=== PATIENT | female | born 1955 | race Caucasian/White ===

== ENCOUNTER → 2017-11-12 | Outpatient (CLI) | payer MEDICARE, OTHER ==
[2015-10-16 11:54] VITALS: BP 109/74
[~2017-11-12] MED LIST: ACET325T9 PO; BUPIVACAINE MPF 0.5% 30 ML VIAL. ONE; CARB100T3 PO; CARB400T PO; CARV12.5 PO; CETI10TA22 PO; CLON1TAB3 PO; DIVA250T4 PO; DIVA500T17 PO; DIVA500T2 PO; DOCU100C28 PO; FERR325T14 PO; FURO-69 PO; GABA-586 PO; GABA600T2 PO; GUAI-108 PO; LEVO75TA5 PO; LEVO88TA4 PO; MAGN400O7 PO; METO50TA6 PO; OXYC5CAP PO; PANT40TA3 PO; POLY17PO5 PO; POTA20TA12 PO; RIVA10TA PO; SENN8.6T99 PO; TIZA4TAB PO; ZOLP5TAB5 PO
== END | disposition home or self-care (01) ==
LOC: SURG 14:48
PROVIDERS: ATTEND Anesthesiology Pain Medicine
DX: M54.81 Occipital neuralgia (principal); I10 Essential (primary) hypertension; M19.90 Unspecified osteoarthritis, unspecified site; G40.409 Other generalized epilepsy and epileptic syndromes, not intractable, without status epilepticus; M62.81 Muscle weakness (generalized); I82.499 Acute embolism and thrombosis of other specified deep vein of unspecified lower extremity; Z90.49 Acquired absence of other specified parts of digestive tract; Z96.653 Presence of artificial knee joint, bilateral; Z98.890 Other specified postprocedural states; Z88.0 Allergy status to penicillin; Z91.048 Other nonmedicinal substance allergy status
CPT/HCPCS: 64450; J3490

== ENCOUNTER → 2017-11-26 | Outpatient (CLI) | payer MEDICARE, OTHER ==
[2015-10-16 11:54] VITALS: BP 109/74
== END | disposition home or self-care (01) ==
LOC: SURG 14:04
PROVIDERS: ATTEND Anesthesiology Pain Medicine
DX: M54.81 Occipital neuralgia (principal); J44.9 Chronic obstructive pulmonary disease, unspecified; Z98.890 Other specified postprocedural states
CPT/HCPCS: 64405; J3490

== ENCOUNTER → 2018-01-07 | Outpatient (CLI) | payer OTHER ==
[2015-10-16 11:54] VITALS: BP 109/74
== END | disposition home or self-care (01) ==
LOC: SURG 14:15
PROVIDERS: ATTEND Anesthesiology Pain Medicine
DX: M54.81 Occipital neuralgia (principal); J44.9 Chronic obstructive pulmonary disease, unspecified; I25.10 Atherosclerotic heart disease of native coronary artery without angina pectoris; E78.00 Pure hypercholesterolemia, unspecified; E66.8 Other obesity; E03.9 Hypothyroidism, unspecified; F32.9 Major depressive disorder, single episode, unspecified; Z90.49 Acquired absence of other specified parts of digestive tract; Z96.653 Presence of artificial knee joint, bilateral; Z98.890 Other specified postprocedural states; Z88.0 Allergy status to penicillin; Z88.8 Allergy status to other drugs, medicaments and biological substances; Z68.41 Body mass index [BMI] 40.0-44.9, adult; Z87.39 Personal history of other diseases of the musculoskeletal system and connective tissue; Z86.718 Personal history of other venous thrombosis and embolism; Z86.14 Personal history of Methicillin resistant Staphylococcus aureus infection
CPT/HCPCS: 64405; J3490

== ENCOUNTER → 2018-06-18 | Outpatient (CLI) | payer OTHER ==
[2015-10-16 11:54] VITALS: BP 109/74
[~2018-06-18] MED LIST changes: -CLON1TAB3 PO; +CLON1TAB4 PO; +LIDOCAINE 1% PF 2 ML VIAL. ONE
== END | disposition home or self-care (01) ==
LOC: SURG 13:11
PROVIDERS: ATTEND Anesthesiology Pain Medicine
DX: M47.812 Spondylosis without myelopathy or radiculopathy, cervical region (principal); I10 Essential (primary) hypertension; E03.9 Hypothyroidism, unspecified; J44.9 Chronic obstructive pulmonary disease, unspecified; M54.81 Occipital neuralgia; Z86.718 Personal history of other venous thrombosis and embolism; M19.90 Unspecified osteoarthritis, unspecified site; Z88.0 Allergy status to penicillin; Z79.899 Other long term (current) drug therapy; Z88.8 Allergy status to other drugs, medicaments and biological substances
CPT/HCPCS: 64490; 64491; J3490

== ENCOUNTER → 2019-11-04 | Outpatient (CLI) | payer OTHER ==
[~2019-11-04] MED LIST changes: +BUPIVACAINE MPF 0.25% 10 ML VIAL. ONE; -BUPIVACAINE MPF 0.5% 30 ML VIAL. ONE; -CETI10TA22 PO; +CETI10TA24 PO; +CLON1TAB11 PO; -CLON1TAB4 PO; -GABA600T2 PO; +GABA600T7 PO; +IOHEXOL 300 MG/ML 50 ML VIAL. ONE; -LIDOCAINE 1% PF 2 ML VIAL. ONE; +LIDOCAINE 1% PF 30 ML VIAL. ONE; -TIZA4TAB PO; +TIZA4TAB2 PO; +methylPREDNISolone ACETATE 80 MG/ML VIAL. ONE
[2019-11-04 12:07] VITALS: BP 179/100
== END | disposition home or self-care (01) ==
LOC: SURG 10:59
PROVIDERS: ATTEND Anesthesiology Pain Medicine
DX: M16.12 Unilateral primary osteoarthritis, left hip (principal); I10 Essential (primary) hypertension; E03.9 Hypothyroidism, unspecified
CPT/HCPCS: 20610; 77002; J1040; J2001; J3490; Q9967; 20611

== ENCOUNTER 2020-09-16 23:20 | Emergency (ER) | payer OTHER ==
[~2020-09-16] VITALS: Ht 167.6 cm; Wt 140.7 kg
[~2020-09-16 23:20] MED LIST changes: -BUPIVACAINE MPF 0.25% 10 ML VIAL. ONE; -CETI10TA24 PO; +CETI10TA74 PO; -IOHEXOL 300 MG/ML 50 ML VIAL. ONE; -LIDOCAINE 1% PF 30 ML VIAL. ONE; -methylPREDNISolone ACETATE 80 MG/ML VIAL. ONE
--- NOTE | 2020-09-16 23:31 | PHYS DOC ---
Past History Past Medical History: Anxiety, Arthritis, Asthma, Constipation, COPD, DVT, GERD, High Cholesterol, Hypothyroid, Vascular Disease, Other Past Surgical History: Knee Replacement Alcohol Use: None Drug Use: None Adult General Chief Complaint Chief Complaint: HIP PAIN [facility] HPI Patient is a 65-year-old female who presents via EMS for left hip pain. This is a chronic problem. She has history of left total hip replacement and subsequently was seen by her orthopedic surgeon 3 days ago in outpatient setting, it was noted that her acetabular head was partially malaligned at that time and that she would benefit from surgical revision that is scheduled in September 2020. She was given prescription for narcotic pain medication at that time but patient reports this has not satisfactorily relieved her symptoms. Patient who lives at home with family members and has good access to outpatient care and services such as home health to assist with transfers have been providing ongoing supportive care for patient. Patient has had no falls, no other changes in health. [facility] reviewed, it appears patient is currently taking clonazepam 1 mg twice daily in addition to tramadol 50 mg 3 times daily. Review of Systems Review of Systems Fourteen body systems of review of systems have been reviewed. See HPI for pertinent positives and negative responses, other rosales all other systems are negative, non-pertinent or non-contributory Allergies Allergies Allergies Coded Allergies Type Severity Reaction Last Updated Verified Penicillins Allergy Intermediate rash 07/29/19 No tramadol Allergy Intermediate 07/29/19 Yes Uncoded Allergies Type Severity Reaction Last Updated Verified clear tape Adverse Reaction Unknown 09/04/14 Physical Exam Physical Exam Constitutional: Pt is oriented to person, place, and time. Pt appears well-developed and well-no urished. Morbidly obese HEENT: Head: Normocephalic and atraumatic. External ears unremarkable, negative atkinson sign Conjunctivae and EOM are normal. Pupils are equal, round, and reactive to light. Oropharynx is clear and moist. No hematomas or lacerations or abrasions to face or scalp OP clear, no blood, no malocclusion, dentition intact Nares clear, no nasal septal hematoma Midface stable Neck: C-spine midline nontender, no step-offs Cardiovascular: Normal rate, regular rhythm and normal heart sounds. Pulmonary/Chest: Effort normal and breath sounds normal. No respiratory distress. No wheezes. CTA bilaterally Abdominal: Soft. Bowel sounds are normal. Pt exhibits no distension. There is no tenderness. Musculoskeletal: No bony tenderness to extremities, no deformities, full ROM extremities Chest wall stable Pelvis stable and tenderness to palpation of left hip without any appreciated abnormalities palpated No vertebral TTP and spine without stepoffs Neurological: Pt is alert and oriented to person, place, and time. Moving all extremities willfully, able to wiggle all fingers and toes Alert and oriented x 3 Sensation grossly intact Skin: Skin is warm and dry. No abrasions, no lacerations Psychiatric: Behavior is appropriate for situation Current Patient Data Vital Signs Vital Signs Date Time Temp Pulse Resp B/P (MAP) Pulse Ox O2 Delivery O2 Flow Rate FiO2 09/17/20 00:20 57 16 133/63 (86) 97 Room Air 09/16/20 23:20 98.1 EKG EKG [] Radiology/Procedures Radiology/Procedures Single view pelvis and two-view left hip dated 09/16/2020. No comparison available. Clinical data indication: Pain. FINDINGS: AP view pelvis and two-view left hip show superior lateral subluxation of the left hip prosthesis from the acetabulum. The acetabular cup is displaced laterally and the upper most acetabular screw is fractured. Pelvic ring is intact. Proximal femoral shaft is intact. There is some fragmentation near the subluxed acetabular cup on the left. Mild degenerative change of the bilateral SI joint and symphysis with mild degenerative change of the right hip joint. Spondylotic changes the lower lumbar spine. IMPRESSION: 1. Superolateral dislocation of left hip prosthesis with fractured acetabular screw Electronically signed by: Jesus Hadley MD (09/17/2020 12:23 AM) [facility] Heart Score HEART Score for Chest Pain: HEART Score for Chest Pain Response (Comments) Value History Slighlty/Non-Suspicious 0 Age >45 - < 65 1 Risk Factors >3 Risk Factors or Hx CAD 2 Total 3 Risk Factors: Risk Factors: DM, Current or recent (<one month) smoker, HTN, HLP, family history of CAD, obesity. Risk Scores: Risk Factors: DM, Current or recent (<one month) smoker, HTN, HLP, family history of CAD, obesity. Course & Med Decision Making Course & Med Decision Making Pertinent Labs and Imaging studies reviewed. (See chart for details) Patient's orthopedic physician called and plain films of hip reviewed. He did not feel transfer was necessary. Patient has good home support, lives with family member and has extensive health resources available to her such as daily home health and other medical providers which assist with transferring etc. Patient is nonweightbearing exclusively. Orthopedic physician did feel that her revision should be scheduled sooner than mid September and reports he will call patient first thing Friday morning to arrange this. No need for additional me dications at this time, patient to continue previously prescribed tramadol and utilize Tylenol for pain. I updated patient on discussion with orthopedic physician and that there is little indication for further diagnostic work-up in ER setting. Strict return precautions were discussed with good understanding by patient, all questions and concerns addressed prior to ER transport home via EMS for ongoing supportive care prior to surgical fixation of left hip Dragon Disclaimer Dragon Disclaimer This electronic medical record was generated, in whole or in part, using a voice recognition dictation system. Departure Departure: Impression: Primary Impression: Chronic left hip pain Disposition: 01 DC HOME SELF CARE/HOMELESS Condition: STABLE Referrals: DEIDRA LEMUS MD (PCP) Additional Instructions: Your evaluated in the ER today for your ongoing left hip pain. There were no emergent and/or surgical findings present today. Your case was discussed with your orthopedic surgeon who also agreed there was no indication for further ER work-up and/or transfer for surgical fixation. With that said, he did recommend that we schedule your surgery sooner than it is currently. He will be reaching out to you first thing Friday to discuss available dates. In the meantime, he advised ongoing tramadol use and Tylenol use for as needed pain and limit weightbearing to reduce risk of worsened left hip. If any concerning signs or symptoms present prior to outpatient follow-up please do not hesitate to come back for repeat evaluation. It was a pleasure to take care of you and I wish you the best going forward ARTIE REBOLLEDO DO Sep 16, 2020 23:31
[2020-09-17 00:20] VITALS: BP 133/63
--- NOTE | 2020-09-17 00:26 | RAD ---
Single view pelvis and two-view left hip dated 09/16/2020. No comparison available. Clinical data indication: Pain. FINDINGS: AP view pelvis and two-view left hip show superior lateral subluxation of the left hip prosthesis fro m the acetabulum. The acetabular cup is displaced laterally and the upper most acetabular screw is fr actured. Pelvic ring is intact. Proximal femoral shaft is intact. There is some fragmentation near the subluxe d acetabular cup on the left. Mild degenerative change of the bilateral SI joint and symphysis with m ild degenerative change of the right hip joint. Spondylotic changes the lower lumbar spine. IMPRESSION: 1. Superolateral dislocation of left hip prosthesis with fractured acetabular screw Electronically signed by: Jesus Hadley MD (09/17/2020 12:23 AM) [facility]
[2020-09-17] MEDS ORDERED: CLON0.5T4 PO (22:04)
[2020-09-17] MEDS ORDERED: METO25TA4 PO (22:04)
[2020-09-17] MEDS ORDERED: LEVO125T5 PO (22:04)
[2020-09-17] MEDS ORDERED: FURO40TA4 PO (22:15)
[2020-09-17] MEDS ORDERED: TORS20TA2 PO (22:15)
[2020-09-17] MEDS ORDERED: DIAZ5TAB4 PO (22:15)
[2020-09-17] MEDS ORDERED: DIVA500T2 PO (22:15)
[2020-09-17] MEDS ORDERED: APIX5TAB3 PO (22:15)
[2020-09-17] MEDS ORDERED: PROM12.58 PO (22:15)
[2020-09-17] MEDS ORDERED: CLON0.1T PO (22:15)
[2020-09-17] MEDS ORDERED: DIVA250T4 PO (22:15)
[2020-09-17] MEDS ORDERED: MULT-735 PO (22:15)
[2020-09-17] MEDS ORDERED: TRAM50TA PO (22:15)
[2020-09-17] MEDS ORDERED: CYCL5TAB PO (22:15)
[2020-09-17] MEDS ORDERED: LISI40TA PO (22:15)
[2020-09-17] MEDS ORDERED: DULO60CA6 PO (22:15)
[2020-09-17] MEDS ORDERED: ZOLP5TAB5 PO (22:50)
== END 2020-09-17 01:23 | disposition home or self-care (01) ==
LOC: ER 23:20
DX: G89.29 Other chronic pain (principal); M25.552 Pain in left hip; F41.9 Anxiety disorder, unspecified; M19.90 Unspecified osteoarthritis, unspecified site; J44.9 Chronic obstructive pulmonary disease, unspecified; K21.9 Gastro-esophageal reflux disease without esophagitis; E78.00 Pure hypercholesterolemia, unspecified; E03.9 Hypothyroidism, unspecified; Z98.890 Other specified postprocedural states; Z86.718 Personal history of other venous thrombosis and embolism; Z88.8 Allergy status to other drugs, medicaments and biological substances
CPT/HCPCS: 73502; 99283

== ENCOUNTER 2020-09-17 16:40 | Observation (INO) | payer OTHER, MEDICAID ==
[~2020-09-17] VITALS: Ht 165.1 cm; Wt 119.0 kg
--- NOTE | 2020-09-17 17:24 | PHYS DOC ---
Past History Past Medical History: Anxiety, Arthritis, Asthma, Constipation, COPD, DVT, GERD, High Cholesterol, Hypothyroid, Vascular Disease, Other Past Surgical History: Knee Replacement Alcohol Use: None Drug Use: None Adult General Chief Complaint Chief Complaint: HIP PAIN HPI HPI Patient is a 65-year-old female presenting via EMS complaining of left hip pain. She was seen by myself at our facility approximately 12 hours ago. She had plain films performed of left hip status post failed total hip arthroplasty. Patient's orthopedic surgeon was called at that time and patient is actually scheduled for surgical revision in upcoming weeks but given clinical scenario, nonemergent transfer indicated and patient was subsequently sent home as she has home health worker comes out and assist with activities of daily living and her sister. Nonetheless, patient has been experiencing worsening pain and decreased mobility in past 1 week and has had increased episodes of using the bathroom on herself because of her inability to transfer and ambulate without assistance of others. She is becoming too much work for sister who lives with her who has Parkinson's and home health services. Patient called primary care physician today and was advised to come back for repeat evaluation. Patient denies any falls or other concerning traumatic events since last seen and evaluated by myself. She is concerned about going home and continuing to accidentally go to the bathroom because of her inability to ambulate and/or transfer despite assistance of others Review of Systems Review of Systems Fourteen body systems of review of systems have been reviewed. See HPI for pertinent positives and negative responses, other rosales all other systems are negative, non-pertinent or non-contributory Allergies Allergies Allergies Coded Allergies Type Severity Reaction Last Updated Verified Penicillins Allergy Intermediate rash 09/16/20 No adhesive tape Allergy Intermediate 09/16/20 Yes tramadol Allergy Intermediate 09/16/20 Yes Physical Exam Physical Exam Constitutional: Well developed, well nourished, no acute distress, non-toxic appearance. Morbidly obese HENT: Normocephalic, atraumatic, bilateral external ears normal, oropharynx moist, no oral exudates, nose normal. Eyes: PERRLA, EOMI, conjunctiva normal, no discharge. Neck: Normal range of motion, no tenderness, supple, no stridor. Cardiovascular: Heart rate regular, sinus rhythm, no murmurs rubs or gallops Lungs & Thorax: Bilateral breath sounds clear to auscultation Abdomen: Bowel sounds normal, soft, no tenderness, no masses, no pulsatile masses. Nonsurgical abdomen, no peritoneal signs. Pelvis stable but focal tenderness with palpation to left hip Skin: Warm, dry, no erythema, no rash. Back: No tenderness, no CVA tenderness. Extremities: No tenderness, no cyanosis, no clubbing, ROM intact, no edema. Neurologic: Alert and oriented X 3, grossly normal motor & sensory function, no focal deficits noted. Psychologic: Affect normal, judgement normal, mood normal. Current Patient Data Vital Signs Vital Signs Date Time Temp Pulse Resp B/P (MAP) Pulse Ox O2 Delivery O2 Flow Rate FiO2 09/17/20 16:48 65 18 168/79 (108) 99 EKG EKG [] Radiology/Procedures Radiology/Procedures Single view pelvis and two-view left hip dated 09/16/2020. No comparison available. Clinical data indication: Pain. FINDINGS: AP view pelvis and two-view left hip show superior lateral subluxation of the left hip prosthesis from the acetabulum. The acetabular cup is displaced laterally and the upper most acetabular screw is fractured. Pelvic ring is intact. Proximal femoral shaft is intact. There is some fragmentation near the subluxed acetabular cup on the left. Mild degenerative change of the bilateral SI joint and symphysis with mild degenerative change of the right hip joint. Spondylotic changes the lower lumbar spine. IMPRESSION: 1. Superolateral dislocation of left hip prosthesis with fractured acetabular screw Electronically signed by: Jesus Hadley MD (09/17/2020 12:23 AM) [facility] Heart Score HEART Score for Chest Pain: HEART Score for Chest Pain Response (Comments) Value History Slighlty/Non-Suspicious 0 Age >45 - < 65 1 Risk Factors >3 Risk Factors or Hx CAD 2 Total 3 Risk Factors: Risk Factors: DM, Current or recent (<one month) smoker, HTN, HLP, family history of CAD, obesity. Risk Scores: Risk Factors: DM, Current or recent (<one month) smoker, HTN, HLP, family history of CAD, obesity. Course & Med Decision Making Course & Med Decision Making This is patient's second ER visit in the past 12 hours. Case discussed with sister who lives with patient, she has Parkinson's and unable to provide full level of care required for patient and given state. Also discussed case further with orthopedic surgeon for second time today who denied transfer to his facility given nonemergent need for repair. Nonetheless, patient unable to safely ambulate and care for self at home. She has regular care at home but requires higher acuity than what is currently provided to assist through personal deficits. Unsafe to disposition home; at minimum plan admission for home safety evaluation, social and physical therapy evaluations, possible placement pending outpatient nonemergent surgical fixation of left hip. I discussed case with hospitalist at [facility] who agreed for admission. Patient updated on plan of care and was amenable to admission Dragon Disclaimer Dragon Disclaimer This electronic medical record was generated, in whole or in part, using a voice recognition dictation system. Departure Departure: Impression: Primary Impression: Failure of left total hip arthroplasty with dislocation of hip Additional Impressions: Unable to care for self Morbid obesity Disposition: ADMITTED INPT THIS HOSP Admitting Physician: Chacho Baltazar Condition: STABLE Referrals: DEIDRA LEMUS MD (PCP) Problem Qualifiers ARTIE REBOLLEDO DO Sep 17, 2020 17:24
[2020-09-17 19:00] VITALS: BP 153/89
[2020-09-17] MEDS ORDERED: ACETAMINOPHEN 325 MG TABLET PO PRN (22:00)
[2020-09-17] MEDS ORDERED: POTASSIUM CHLORIDE 20 MEQ TABLET.ER. PO PRN (22:00)
[2020-09-17] MEDS ORDERED: FUROSEMIDE 40 MG TABLET PO PRN (22:00)
[2020-09-17] MEDS ORDERED: METO25TA4 PO (22:04)
[2020-09-17] MEDS ORDERED: CLON0.5T4 PO (22:04)
[2020-09-17] MEDS ORDERED: LEVO125T5 PO (22:04)
[2020-09-17] MEDS ORDERED: CYCL5TAB PO (22:15)
[2020-09-17] MEDS ORDERED: TORS20TA2 PO (22:15)
[2020-09-17] MEDS ORDERED: FURO40TA4 PO (22:15)
[2020-09-17] MEDS ORDERED: APIX5TAB3 PO (22:15)
[2020-09-17] MEDS ORDERED: PROM12.58 PO (22:15)
[2020-09-17] MEDS ORDERED: DIAZ5TAB4 PO (22:15)
[2020-09-17] MEDS ORDERED: CLON0.1T PO (22:15)
[2020-09-17] MEDS ORDERED: MULT-735 PO (22:15)
[2020-09-17] MEDS ORDERED: TRAM50TA PO (22:15)
[2020-09-17] MEDS ORDERED: DIVA500T2 PO (22:15)
[2020-09-17] MEDS ORDERED: DIVA250T4 PO (22:15)
[2020-09-17] MEDS ORDERED: DULO60CA6 PO (22:15)
[2020-09-17] MEDS ORDERED: LISI40TA PO (22:15)
[2020-09-17] MEDS ORDERED: PROMETHAZINE 25 MG TABLET. PO PRN (22:45)
[2020-09-17] MEDS ORDERED: ZOLP5TAB5 PO (22:50)
[2020-09-17] MEDS: traMADol 50 MG TABLET PO PRN (22:54)
[2020-09-17] MEDS ORDERED: ZOLPIDEM 5 MG TABLET. PO PRN (23:00)
[2020-09-17] MEDS ORDERED: ANTI-COAG MONITOR BY PHARMACY. MC PRN (23:15)
[2020-09-17 23:43] VITALS: BP 121/74
[2020-09-18] MEDS: cloNIDine HCL 0.1 MG TABLET PO SCH ×2 (00:15→08:10)
[2020-09-18] MEDS: APIXABAN 5 MG TABLET. PO SCH ×3 (00:16→22:04)
[2020-09-18] MEDS: DIVALPROEX SODIUM 250 MG TABLET.DR. PO SCH ×4 (00:16→22:04)
[2020-09-18] MEDS: METOPROLOL TART IMMED RELEASE 25 MG TABLET. PO SCH ×2 (00:16→08:09)
[2020-09-18] MEDS: FERROUS SULFATE 325 MG TABLET. PO SCH ×3 (00:16→22:04)
[2020-09-18] MEDS: GABAPENTIN 300 MG CAPSULE. PO SCH ×4 (00:16→22:04)
--- NOTE | 2020-09-18 03:10 | NUR ---
PT admitted for displaced hip replacement. This is PT's second visit to ER for same in 2 days. PT is scheduled for surgical repair. PT asking for a Philip to be placed multiple times throughout shift. PT explained each time that it increases her risk of infection and she is needing this surgery. An infection would delay surgery. Re-explained that we do no mind needing to change and clean her as needed. Bed chen utilized when not incontinent. PT mostly incontinent. PT brought in discharge medication sheet from [facility] with home medications listed. PT does not take medications exactly according to discharge. Medications adjusted multiple times from PT telling this nurse differing doses throughout night. IV placed. Reviewed with PT her PMH, PSH, SH, FH and medications.
[2020-09-18 05:00] VITALS: BP 117/70
[2020-09-18] MEDS: LEVOTHYROXINE 125 MCG TABLET PO SCH (06:38)
[2020-09-18 07:03] LABS: BASO % 1 % (0-3); EOS # 0.1 x10^3/uL (0.0-0.7); EOS % 2 % (0-3); HEMATOCRIT 31.9 % (36.0-47.0); HEMOGLOBIN 10.4 g/dL (12.0-15.5); LYMPH # 1.8 x10^3/uL (1.0-4.8); LYMPH % 32 % (24-48); MEAN CORPUSCULAR HEMOGLOBIN 30 pg (25-35); MEAN CORPUSCULAR HGB CONC 33 g/dL (31-37); MEAN CORPUSCULAR VOLUME 92 fL (79-100); MONO # 0.8 x10^3/uL (0.0-1.1); MONO % 15 % (0-9); NEUT # 2.9 x10^3uL (1.8-7.7); NEUT % 51 % (31-73); PLATELET COUNT 193 x10^3/uL (140-400); RED BLOOD COUNT 3.48 x10^6/uL (3.50-5.40); RED CELL DISTRIBUTION WIDTH 16.1 % (11.5-14.5); WHITE BLOOD COUNT 5.6 x10^3/uL (4.0-11.0)
[2020-09-18 07:24] LABS: ALBUMIN 2.4 g/dL (3.4-5.0); ALBUMIN/GLOBULIN RATIO 0.9 (1.0-1.7); CALCIUM 8.1 mg/dL (8.5-10.1); GFR 55.8; POTASSIUM 4.3 mmol/L (3.5-5.1); TOTAL BILIRUBIN 0.3 mg/dL (0.2-1.0); TOTAL PROTEIN 5.1 g/dL (6.4-8.2)
[2020-09-18] MEDS: MULTIVITAMIN with MINERAL TABLET. PO SCH (08:08)
[2020-09-18] MEDS: clonazePAM 0.5 MG TABLET PO SCH ×3 (08:09→21:00)
[2020-09-18] MEDS: diazePAM 5 MG TABLET. PO SCH ×5 (08:10→21:00)
[2020-09-18] MEDS: DULoxetine HCL 60 MG CAPSULE.DR PO SCH (08:10)
[2020-09-18] MEDS: traMADol 50 MG TABLET PO PRN ×2 (08:30→22:04)
[2020-09-18] MEDS ORDERED: LISINOPRIL 20 MG TABLET PO SCH (09:00)
[2020-09-18] MEDS ORDERED: TORSEMIDE 20 MG TABLET. PO SCH (09:00)
[2020-09-18] MEDS: CYCLOBENZAPRINE 10 MG TABLET. PO PRN (11:11)
[2020-09-18 11:28] VITALS: BP 81/41
[2020-09-18 11:30] VITALS: BP 78/37
[2020-09-18] MEDS ORDERED: carBAMazepine 100 MG TAB.CHEW PO SCH (14:00)
[2020-09-18 14:18] VITALS: BP 107/49
[2020-09-18] MEDS ORDERED: IV NORMAL SALINE 500ML 500 ML IV ONE (14:30)
--- NOTE | 2020-09-18 14:53 | HP ---
ADMIT DATE: 09/18/2020 HISTORY OF PRESENT ILLNESS: The patient is a 65-year-old female patient who presented to the Emergency Room for the second time with a complaint of left hip pain. She apparently was seen at the Emergency Room on Friday. She at that time plain films performed of the left hip, status post failed total hip arthroplasty. Her orthopedic surgeon was called at that time and the patient is actually scheduled for surgical intervention in the upcoming weeks, but given the clinical scenario, none emergent transfer indicated and the patient was subsequently sent home. She has home health workers comes out and assist with activities of daily living and her sister. Nonetheless, the patient has been experiencing worsening pain and decreased mobility in the past 1 week, has had increased episodes of using the bathroom on herself because of her inability to transfer and ambulate without assistance of others. She is becoming too much work for sister who lives with her who herself has Parkinson's disease and some other medical problems. The patient called primary care physician today and was advised to come back to repeat evaluation. She denied any fall or other concerning traumatic events since last seen. She is very concerned about going home and continued to accidentally go to the bathroom because of her inability to ambulate and/or transfer despite assistance of others and therefore, she was admitted for pain management due to self-care deficit and failed her left total hip arthroplasty with dislocation of the hip. PAST MEDICAL HISTORY: Significant for hypertension, morbid obesity, COPD, generalized osteoarthritis, osteoporosis, and seizure disorder. She has also history of deep vein thrombosis. PAST SURGICAL HISTORY: Significant for right total knee arthroplasty x 2, left total knee arthroplasty, right total shoulder replacement, cholecystectomy, D and C. She has also bilateral cataract extraction and tubal ligation. She did have also an IVC filter placed. ALLERGIES: SHE IS ALLERGIC TO PENICILLIN AND CLEAR TAPE. MEDICATIONS: She is currently on following medications: She is on promethazine 12.5 mg every 8 hours as needed, cyclobenzaprine 5 mg 3 times a day, ferrous sulfate 325 mg twice a day, apixaban 5 mg twice a day, clonidine 0.1 mg twice a day, metoprolol tartrate 25 mg twice a day, lisinopril 40 mg once a day, tramadol 50 mg every 8 hours, Tylenol 650 mg every 8 hours, clonazepam, she takes 1 mg twice a day, carbamazepine 100 mg 3 times a day, divalproex 750 mg twice a day and divalproex 500 mg daily. She is on gabapentin 600 mg 3 times a day, duloxetine 60 mg daily. She is on diazepam 5 mg 4 times a day, Ambien 5 mg at bedtime, potassium chloride 20 mEq twice a day, furosemide 40 mg once a day, furosemide 20 mg daily, levothyroxine 125 mcg once a day, multivitamin 1 tablet once a day. REVIEW OF SYSTEMS: The patient denied any blurring of vision, did have bilateral cataract extraction, but denied any glaucoma or macular degeneration. Denied any earache, tinnitus or sensorineural deafness. Denied any nosebleeds, stuffy nose or postnasal drip. Denied any sore throat, sore tongue, toothache, hoarseness of voice or difficulty swallowing. She apparently has lost 74 pounds intentionally. She is on 1500 calorie diet. Denied any nausea, vomiting, diarrhea or constipation. Denied any hematemesis, melena or hematochezia. Denied any dysuria, frequency or hematuria. Denied any chest pain, shortness of breath, orthopnea, paroxysmal nocturnal dyspnea. Denied any cough, phlegm or hemoptysis. Denied any chills, rigors or fever. FAMILY HISTORY: She has 4 sisters and 3 brothers, all living in [place], [place] and they do not keep in touch with her. Her mother at the age of 72. Her father is still alive at the age of 74, which is probably wrong, he probably must be older than that. SOCIAL HISTORY: She is , has 1 miscarriage. She has no children. She smoked for 20 years, quit 3 years ago. She does not drink alcohol or use any recreational drugs. She used to work at [employer], worked there for 20 years. PHYSICAL EXAMINATION: GENERAL: On arrival to the Emergency Room, she was pale, but no jaundice or cyanosis. No lymphadenopathy, no thyromegaly. No jugular venous distention, but mild bilateral lower limb edema. VITAL SIGNS: Her heart rate on arrival was 65, blood pressure was 168/79, temperature was 97.5, respiratory rate was 20, and oxygen saturation was 100% on room air. HEAD, EYES, EARS, NOSE AND THROAT: Showed normocephalic, atraumatic. NECK: Supple. HEART: Showed normal first and second heart sounds. No gallop or murmur. CHEST: Clear to auscultation. No crepitation or rhonchi. ABDOMEN: Distended, soft, nontender. NEUROLOGIC: She is awake, alert, responding appropriately. All cranial nerves intact. She moves upper extremities without difficulty. She is having severe pain in her left hip joint, which limits her ability to ambulate. She has dislocated hip and apparently fractured acetabular screws. LABORATORY DATA: Her lab work on admission showed a white cell count of 5600, hemoglobin 10, hematocrit 32, MCV 92, and platelet count of 193,000 with normal manual differential. Her chemistry showed a serum sodium 134, potassium 4.3, chloride 100, bicarbonate 28, anion gap of 6, BUN 17, creatinine 1, estimated GFR was 55 mL per minute. Her glucose was 87, calcium was 8.1. Total bilirubin, AST, ALT, alkaline phosphatase were normal. Total protein 5.1, albumin was 2.4. IMPRESSION: In summary, this is a 65-year-old female patient who was admitted with failure of left hip total arthroplasty with dislocation of the left hip and fracture of the acetabular screws. She has also severe self-care deficit, morbid obesity, she has multiple other medical problems including seizure disorder, hypertension, COPD, morbid obesity, osteoarthritis, and osteoporosis. PLAN: To continue with all her medications. I will obviously consult the social science research assistant to see whether she is a candidate for transfer to a senior care facility prior to her going to surgery. JENNIFER LEYVA MD DR: DRAKE/tracy JOB#: [id number] / [id number]
--- NOTE | 2020-09-18 15:54 | EKG ---
[address] [address] Test Date: 2020-09-18 Test Time: 15:08:33 Pat Name: JOSETTE ZHANG Department: Room: 113 A Gender: F Gut Dropper: : [id number] Requested By: DEIDRA LEMUS Order Number: [id number] Reading MD: Tera Seymour MD Measurements Intervals [place] Rate: 51 P: 45 TX: 212 QRS: 25 QRSD: 92 T: 138 QT: 476 QTc: 445 Interpretive Statements SINUS RHYTHM ST & T ABNORMALITY, CONSIDER ANTEROLATERAL ISCHEMIA OR LEFT VENTRICULAR STRAIN T ABNORMALITY IN ANTERIOR LEADS ABNORMAL ECG Electronically Signed On 09-19-2020 16:23:51 SHUTTLE BUGGY OPERATOR by Tera Seymour MD
--- NOTE | 2020-09-18 18:30 | NUR ---
Received call from Dr. Gay, patient's PCP, this afternoon. Patient is scheduled for hip surgery on 26 September 2020; her surgeon, Dr. Velasquez has ordered CMP, CBC, ESR, CRP, EKG, UA, MRSA, and Covid-19 to be completed prior to surgery. Orders entered, results are to be faxed to Dr. Velasquez's office at [phone]. Will continue to monitor and report to oncoming shift.
--- NOTE | 2020-09-18 19:18 | PN ---
DATE: 09/18/2020 SUBJECTIVE: The patient is resting, slightly propped up in bed, in no apparent distress. She continued to complain of severe pain in her left hip joint and inability to walk. PHYSICAL EXAMINATION: GENERAL: When I examined her, she looked pale, but no jaundice, cyanosis or thyromegaly. No jugular venous distention. No lower limb edema. VITAL SIGNS: Her heart rate was 70, her blood pressure was 78/37, temperature was 97.4, respiratory rate was 20, and oxygen saturation was 97%. HEAD, EYES, EARS, NOSE, AND THROAT: Showed she is normocephalic, atraumatic. NECK: Supple. HEART: Showed normal first and second heart sounds. No gallop, rub or murmur. CHEST: Clear to auscultation. No crepitation or rhonchi. ABDOMEN: Distended, soft, nontender. No guarding or rigidity. No organomegaly. All hernial orifice intact. Bowel sounds normal. NEUROLOGIC: She is awake, alert, responding appropriately. All cranial nerves intact. She moves upper extremities without difficulty. She is unable to move her left lower extremity due to severe hip pain. LABORATORY DATA: Her lab work this morning showed a white cell count 5600; hemoglobin 10; hematocrit 32; MCV 92; and platelet count of 193,000. Her chemistry this morning showed a serum sodium 134, potassium 4.3, chloride 100, bicarbonate 28, anion gap of 60, BUN 17, creatinine 1. Estimated GFR was 55 mL per minute. Her glucose was 87, calcium was 8.1. Total bilirubin, AST, ALT, alkaline phosphatase were normal. Total protein 5.1, albumin was 2.4. ASSESSMENT: 1. In summary, this is a 65-year-old female patient who was admitted with dislocated left hip joint fracture of the acetabular screws. 2. Severe self-care deficit. 3. Morbid obesity and poor mobility. She has multiple other medical problems including: A. Seizure disorder. B. Hypertension. C. Chronic obstructive pulmonary disease. D. Morbid obesity. F. Osteoarthritis and osteoporosis. G. History of deep venous thrombosis, for which she had an inferior vena cava filter. PLAN: To continue with pain management. Continue with DVT prophylaxis. Continue with all her seizure medication. I will hold her blood pressure medication as she is hypotensive. JENNIFER LEYVA MD DR: Kerry JOB#: [id number] / [id number]
[2020-09-18 20:06] VITALS: BP 114/67
[2020-09-18 23:22] VITALS: BP 136/73
[2020-09-18 23:37] LABS: BACTERIA,URINE 0 /HPF (0-FEW); BILIRUBIN,URINE NEG (NEG); CLARITY,URINE CLEAR; COLOR,URINE YELLOW; GLUCOSE,URINE NEG (NEG); NITRITE,URINE NEG (NEG); RBC,URINE 0 /HPF (0-2); SQUAMOUS EPITHELIAL CELL,UR OCC /LPF; UROBILINOGEN,URINE 0.2 mg/dL (0.2 mg/dL); WBC,URINE RARE /HPF (0-4)
[2020-09-19 05:51] VITALS: BP 125/73
[2020-09-19] MEDS: LEVOTHYROXINE 125 MCG TABLET PO SCH (06:00)
[2020-09-19 06:48] LABS: BASO % 1 % (0-3); EOS # 0.1 x10^3/uL (0.0-0.7); EOS % 1 % (0-3); HEMATOCRIT 35.4 % (36.0-47.0); HEMOGLOBIN 11.5 g/dL (12.0-15.5); LYMPH # 1.6 x10^3/uL (1.0-4.8); LYMPH % 25 % (24-48); MEAN CORPUSCULAR HEMOGLOBIN 30 pg (25-35); MEAN CORPUSCULAR HGB CONC 33 g/dL (31-37); MEAN CORPUSCULAR VOLUME 92 fL (79-100); MONO # 0.8 x10^3/uL (0.0-1.1); MONO % 13 % (0-9); NEUT # 3.7 x10^3uL (1.8-7.7); NEUT % 60 % (31-73); PLATELET COUNT 192 x10^3/uL (140-400); RED BLOOD COUNT 3.83 x10^6/uL (3.50-5.40); RED CELL DISTRIBUTION WIDTH 16.1 % (11.5-14.5); WHITE BLOOD COUNT 6.3 x10^3/uL (4.0-11.0)
[2020-09-19 06:50] LABS: ALBUMIN 2.5 g/dL (3.4-5.0); ALBUMIN/GLOBULIN RATIO 0.9 (1.0-1.7); CALCIUM 8.3 mg/dL (8.5-10.1); GFR 55.8; POTASSIUM 4.1 mmol/L (3.5-5.1); TOTAL BILIRUBIN 0.4 mg/dL (0.2-1.0); TOTAL PROTEIN 5.4 g/dL (6.4-8.2)
--- NOTE | 2020-09-19 07:49 | PDOC2 ---
MARIEL GUZMAN COMMUNITY FACILITATOR 09/19/20 0749: CARDIAC CONSULT DATE OF CONSULT DOS: DATE: 09/19/20 TIME: 07:44 REASON FOR CONSULT Reason for Consult abnormal EKG REFERRING PHYSICIAN Referring Physician Dr. Baltazar SOURCE Source: Chart review, Patient HPI History of Present Illness this is a 65 yo female who presented secondary to worsening left hip pain and immobility. Patient underwent left hip arthroplasty 03/21/[address] Velasquez in [place]. Recent imaging notable for superolateral dislocation of left hip prosthesis with fractured acetabular screw. Patient is scheduled for revision next Friday. Over the last week, patient has been more weak and is unable to get up without significant assistance. Lives at home with sister who has Parkinson's and unable to care for her. Has urinated on herself multiples times as she is unable to get to the bathroom. Patient returned to ED with increased pain and self care deficit. EKG noted to be abnormal, which prompted this consult. She denies any chest pain, palpitations, dizziness, diaphoresis, SOA, nausea/vomiting, or syncopal episodes. No recent cardiac workup and does not follow with director of strategic communications. PAST MEDICAL HISTORY Cardiovascular: HTN, hyperipidemia Pulmonary: COPD CENTRAL NERVOUS SYSTEM: Seizure GI: GERD Heme/Onc: Anemia NOS, Other (DVT) Psych: Anxiety, Depression Musculoskeletal: Osteoarthritis Endocrine: Hypothyroidism PAST SURGICAL HISTORY Past Surgical History: Total knee replacement (bilateral ), Other (right shoulder surgery, IVC filter ) FAMILY HISTORY Family History: Heart Disease, Other (Parkinson's) SOCIAL HISTORY Smoke: Quit ALCOHOL: none Drugs: None Lives: with Family CURRENT MEDICATIONS Current Medications Current Medications Acetaminophen (Tylenol) 650 mg PRN Q8HRS PRN PO PAIN Last administered on 09/18/20at 11:11; Start 09/17/20 at 22:00 Apixaban (Eliquis) 5 mg BID PO Last administered on 09/18/20at 22:04; Start 09/18/20 at 00:00 Carbamazepine (TEGretol XR) 100 mg TID PO ; Start 09/18/20 at 00:00; Stop 09/18/20 at 14:17; Status DC Clonazepam (KlonoPIN) 1 mg BID PO Last administered on 09/18/20at 08:09; Start 09/18/20 at 00:00 Clonidine HCl (Catapres) 0.1 mg BID PO Last administered on 09/18/20at 08:10; Start 09/18/20 at 00:00; Stop 09/18/20 at 14:17; Status DC Diazepam (Valium) 5 mg QID PO Last administered on 09/18/20at 16:31; Start 09/18/20 at 00:00 Divalproex Sodium (Depakote) 750 mg BID PO Last administered on 09/18/20at 22:04; Start 09/18/20 at 00:00 Duloxetine HCl (Cymbalta) 60 mg DAILY PO Last administered on 09/18/20at 08:10; Start 09/18/20 at 09:00 Ferrous Sulfate (Feosol) 325 mg BID PO Last administered on 09/18/20at 22:04; Start 09/18/20 at 00:00 Furosemide (Lasix) 40 mg DAILY PRN PO SEE ADMIN INSTRUCTIONS; Start 09/17/20 at 22:00; Status UNV Levothyroxine Sodium (Synthroid) 125 mcg DAILY06 PO Last administered on at 06:00; Start 09/18/20 at 06:00 Metoprolol Tartrate (Lopressor) 25 mg BID PO Last administered on 09/18/20at 08:09; Start 09/18/20 at 00:00; Stop 09/18/20 at 14:17; Status DC Potassium Chloride (Klor-Con) 20 meq BID PRN PO SEE ADMIN INSTRUCTIONS; Start 09/17/20 at 22:00; Status UNV Torsemide (Demadex) 20 mg DAILY PO Last administered on 09/18/20at 08:11; Start 09/18/20 at 09:00; Stop 09/18/20 at 14:17; Status DC Tramadol HCl (Ultram) 50 mg PRN Q8HRS PRN PO PAIN Last administered on 09/18/20 at 22:04; Start 09/17/20 at 22:00 Cyclobenzaprine HCl (Flexeril) 10 mg PRN TID PRN PO MUSCLE SPASMS Last administered on 09/18/20at 11:11; Start 09/17/20 at 22:45 Divalproex Sodium (Depakote) 500 mg DAILY16 PO Last administered on 09/18/20at 16:31; Start 09/18/20 at 16:00 Gabapentin (Neurontin) 600 mg TID PO Last administered on 09/18/20at 22:04; Start 09/18/20 at 00:00 Lisinopril (Prinivil) 40 mg DAILY PO Last administered on 09/18/20at 08:10; Start 09/18/20 at 09:00; Stop 09/18/20 at 14:17; Status DC Multivitamins/ Calcium (Thera-M Plus) 1 tab DAILY PO Last administered on 09/18/20at 08:08; Start 09/18/20 at 09:00 Promethazine HCl (Phenergan) 12.5 mg PRN Q8HRS PRN PO NAUSEA/VOMITING; Start 09/17/20 at 22:45 Zolpidem Tartrate (Ambien) 5 mg PRN QHS PRN PO INSOMNIA; Start 09/17/20 at 23:00 Info (Anti-Coagulation Monitoring By Pharmacy) 1 each PRN DAILY PRN SEE [facility]; Start 09/17/20 at 23:15 Carbamazepine (TEGretol) 100 mg TID PO ; Start 09/18/20 at 14:00; Status UNV Sodium Chloride 500 ml @ 0 mls/hr 1X ONCE IV Last administered on 09/18/20at 15:18; Start 09/18/20 at 14:30; Stop 09/18/20 at 14:31; Status DC Carbamazepine (TEGretol XR) 100 mg TID PO Last administered on 09/18/20at 22:06; Start 09/18/20 at 21:00 Active Scripts Active Reported Zolpidem Tartrate 5 Mg Tablet 5 Mg PO PRN QHS PRN Torsemide 20 Mg Tablet 1 Tab PO DAILY Promethazine Hcl 12.5 Mg Tablet 1 Tab PO PRN Q8HRS PRN 7 Days Tramadol Hcl (Tramadol HCl) 50 Mg Tablet 50 Mg PO PRN Q8HRS PRN One-Daily Multi-Vitamin (Multivitamin) 1 Each Tablet 1 Tab PO DAILY 30 Days Lisinopril 40 Mg Tablet 1 Tab PO DAILY Furosemide 40 Mg Tablet 1 Tab PO DAILY PRN Eliquis (Apixaban) 5 Mg Tablet 5 Mg PO BID Cymbalta (Duloxetine Hcl) 60 Mg Capsule. 1 Cap PO DAILY Depakote (Divalproex Sodium) 500 Mg Tablet.dr 1 Tab PO DAILY16 Depakote (Divalproex Sodium) 250 Mg Tablet.dr 750 Mg PO BID Diazepam 5 Mg Tablet 5 Mg PO QID PRN Cyclobenzaprine Hcl 5 Mg Tablet 1 Tab PO TID PRN Clonidine Hcl 0.1 Mg Tablet 1 Tab PO BID Clonazepam 0.5 Mg Tablet 2 Tab PO BID PRN Metoprolol Tartrate 25 Mg Tablet 1 Tab PO BID Levothyroxine Sodium 125 Mcg Tablet 1 Tab PO DAILY06 Tegretol Xr (Carbamazepine) 100 Mg Tab.er.12h 100 Mg PO TID Potassium Chloride 20 Meq Tab.er.prt 20 Meq PO BID PRN Gabapentin 600 Mg Tablet 600 Mg PO TID Ferrous Sulfate 325 Mg Tablet 325 Mg PO BID Tylenol (Acetaminophen) 325 Mg Tablet 650 Mg PO PRN Q8HRS PRN ALLERGIES Allergies: Coded Allergies: Penicillins (Unverified Allergy, Intermediate, rash, 09/16/20) adhesive tape (Verified Allergy, Intermediate, 09/16/20) ROS Review of Systems 14 point ROS conducted with pertinent positives noted above in HPI PHYSICAL EXAM General: Alert, Oriented X3, Cooperative, No acute distress HEENT: Atraumatic, Mucous membr. moist/pink Lungs: Clear to auscultation Heart: Regular rate Abdomen: Soft, Other (obese ) Extremities: No edema, Normal pulses Skin: No breakdown Neuro: Normal speech, Sensation intact Psych/Mental Status: Mental status NL, Mood NL MUSCULOSKELETAL: Osteoarthritic changes both hands VITALS Vital Signs Vital Signs Date Time Temp Pulse Resp B/P (MAP) Pulse Ox O2 Delivery O2 Flow Rate FiO2 09/19/20 05:51 96.8 65 20 125/73 (90) 94 09/18/20 23:04 Room Air LABS LABS Laboratory Tests Test 09/18/20 05:54 09/18/20 22:00 09/19/20 05:45 White Blood Count 5.6 x10^3/uL (4.0-11.0) 6.3 x10^3/uL (4.0-11.0) Red Blood Count 3.48 x10^6/uL (3.50-5.40) 3.83 x10^6/uL (3.50-5.40) Hemoglobin 10.4 g/dL (12.0-15.5) 11.5 g/dL (12.0-15.5) Hematocrit 31.9 % (36.0-47.0) 35.4 % (36.0-47.0) Mean Corpuscular Volume 92 fL (79-100) 92 fL (79-100) Mean Corpuscular Hemoglobin 30 pg (25-35) 30 pg (25-35) Mean Corpuscular Hemoglobin Concent 33 g/dL (31-37) 33 g/dL (31-37) Red Cell Distribution Width 16.1 % (11.5-14.5) 16.1 % (11.5-14.5) Platelet Count 193 x10^3/uL (140-400) 192 x10^3/uL (140-400) Neutrophils (%) (Auto) 51 % (31-73) 60 % (31-73) Lymphocytes (%) (Auto) 32 % (24-48) 25 % (24-48) Monocytes (%) (Auto) 15 % (0-9) 13 % (0-9) Eosinophils (%) (Auto) 2 % (0-3) 1 % (0-3) Basophils (%) (Auto) 1 % (0-3) 1 % (0-3) Neutrophils # (Auto) 2.9 x10^3uL (1.8-7.7) 3.7 x10^3uL (1.8-7.7) Lymphocytes # (Auto) 1.8 x10^3/uL (1.0-4.8) 1.6 x10^3/uL (1.0-4.8) Monocytes # (Auto) 0.8 x10^3/uL (0.0-1.1) 0.8 x10^3/uL (0.0-1.1) Eosinophils # (Auto) 0.1 x10^3/uL (0.0-0.7) 0.1 x10^3/uL (0.0-0.7) Basophils # (Auto) 0.0 x10^3/uL (0.0-0.2) 0.0 x10^3/uL (0.0-0.2) Sodium Level 134 mmol/L (136-145) 133 mmol/L (136-145) Potassium Level 4.3 mmol/L (3.5-5.1) 4.1 mmol/L (3.5-5.1) Chloride Level 100 mmol/L (98-107) 100 mmol/L (98-107) Carbon Dioxide Level 28 mmol/L (21-32) 30 mmol/L (21-32) Anion Gap 6 (6-14) 3 (6-14) Blood Urea Nitrogen 17 mg/dL (7-20) 18 mg/dL (7-20) Creatinine 1.0 mg/dL (0.6-1.0) 1.0 mg/dL (0.6-1.0) Estimated GFR (Cockcroft-Gault) 55.8 55.8 BUN/Creatinine Ratio 17 (6-20) 18 (6-20) Glucose Level 87 mg/dL (70-99) 84 mg/dL (70-99) Calcium Level 8.1 mg/dL (8.5-10.1) 8.3 mg/dL (8.5-10.1) Total Bilirubin 0.3 mg/dL (0.2-1.0) 0.4 mg/dL (0.2-1.0) Aspartate Amino Transf (AST/SGOT) 20 U/L (15-37) 22 U/L (15-37) Alanine Aminotransferase (ALT/SGPT) 20 U/L (14-59) 23 U/L (14-59) Alkaline Phosphatase 54 U/L (46-116) 57 U/L (46-116) Total Protein 5.1 g/dL (6.4-8.2) 5.4 g/dL (6.4-8.2) Albumin 2.4 g/dL (3.4-5.0) 2.5 g/dL (3.4-5.0) Albumin/Globulin Ratio 0.9 (1.0-1.7) 0.9 (1.0-1.7) Urine Collection Type Unknown Urine Color Yellow Urine Clarity Clear Urine pH 7.0 Urine Specific [place] 1.020 Urine Protein Neg (NEG-TRACE) Urine Glucose (UA) Neg mg/dL (NEG) Urine Ketones (Stick) Neg mg/dL (NEG) Urine Blood Neg (NEG) Urine Nitrite Neg (NEG) Urine Bilirubin Neg (NEG) Urine Urobilinogen Dipstick 0.2 mg/dL (0.2 mg/dL) Urine Leukocyte Esterase Neg (NEG) Urine RBC 0 /HPF (0-2) Urine WBC Rare /HPF (0-4) Urine Squamous Epithelial Cells Occ /LPF Urine Bacteria 0 /HPF (0-FEW) C-Reactive Protein 18.9 mg/L (0-3.3) ECHOCARDIOGRAM Echocardiogram <Conclusion> Left ventricle systolic function is normal. The Ejection Fraction is 55-60%. Doppler and Color Flow revealed trace to mild tricuspid regurgitation. The PA pressure was estimated at 34 mmHg. The IVC is normal in size and collapses >50% with inspiration. There is no evidence of significant pericardial effusion. DATE: 09/05/14 1646 ASSESSMENT/PLAN Assessment/Plan 1. Left hip pain; s/p failed left hip arthroplasty. surgical date 03/21/20. scheduled for revision next Friday with Dr. Velasquez in [place] 2. Abnormal EKG; noted with significant t-wave inversion of anterolateral leads, which is significant change from previous EKG 10/12/15. CP free 3. Hypertension; controlled 4. Hyperlipidemia 5. Hypothyroidism 6. H/o DVT's s/p IVC filter. chronic OAC with Eliquis 7. Seizure disorder on Depakote 8. Morbid obestiy Recommendations Trend troponin level Lipids, TSH ASA, statin Echo to assess LV systolic function Will need further ischemic evaluation. Supportive care Further pending above. SUSI AKERS MD 09/19/20 1625: CARDIAC CONSULT ASSESSMENT/PLAN Assessment/Plan Pt. seen and examined. Agree with above PERSONAL DEVELOPMENT EDUCATOR note. EKG reviewed, suggestive of anterior wall ischemia. This may be coronary disease versus stress induced EKG changes. Trop mildly elevated. Echo wnl. Will repeat EKG and monitor. No current chest pain or dyspnea. Will need eventual ischemic evaluation. MARIEL GUZMAN APRN Sep 19, 2020 07:49 SUSI AKERS MD Sep 19, 2020 16:25
[2020-09-19] MEDS: DULoxetine HCL 60 MG CAPSULE.DR PO SCH (08:41)
[2020-09-19] MEDS: DIVALPROEX SODIUM 250 MG TABLET.DR. PO SCH ×3 (08:41→20:39)
[2020-09-19] MEDS: FERROUS SULFATE 325 MG TABLET. PO SCH ×2 (08:41→20:39)
[2020-09-19] MEDS: GABAPENTIN 300 MG CAPSULE. PO SCH ×3 (08:41→20:39)
[2020-09-19] MEDS: clonazePAM 0.5 MG TABLET PO SCH ×2 (08:41→20:32)
[2020-09-19] MEDS: MULTIVITAMIN with MINERAL TABLET. PO SCH (08:41)
[2020-09-19] MEDS: APIXABAN 5 MG TABLET. PO SCH ×2 (08:41→20:39)
[2020-09-19] MEDS: diazePAM 5 MG TABLET. PO SCH ×4 (08:41→20:32)
[2020-09-19] MEDS: traMADol 50 MG TABLET PO PRN ×2 (08:46→22:53)
[2020-09-19 11:05] VITALS: BP 125/57
--- NOTE | 2020-09-19 12:22 | CARD ---
MR#: [id number] Date of Study: 09/19/2020 Ordering Physician: MARIEL GUZMAN, Referring Physician: MARIEL GUZMAN, Tech: Kimmie Pierce APPROVED REPORT EXAM: Two-dimensional and M-mode echocardiogram with Doppler and color Doppler. Other Information Quality : AverageHR: 70bpm INDICATION Arrhythmia Abnormal EKG 2D DIMENSIONS RVDd2.6 (2.9-3.5cm)Left Atrium(2D)3.9 (1.6-4.0cm) IVSd1.0 (0.7-1.1cm)Aortic Root(2D)2.7 (2.0-3.7cm) LVDd5.7 (3.9-5.9cm)LVOT Diameter2.0 (1.8-2.4cm) PWd0.9 (0.7-1.1cm)LVDs3.1 (2.5-4.0cm) FS (%) 45.0 %SV121.4 ml LVEF(%)75.6 (>50%) Aortic Valve AoV Peak Sylvester.164.5cm/sAoV VTI34.4cm AO Peak GR.10.8mmHgLVOT Peak Sylvester.124.5cm/s LVOT VTI 26.99cmAO Mean GR.5mmHg KEN (VMAX)2.18ii0ESF (VTI)2.36cm2 Mitral Valve MV E Ftnshfvx506.3cm/sMV E Peak Gr.5mmHg MV DECEL [id number] A Ydcddopc046.4cm/s MV E Mean Gr.2mmHgE/A Ratio1.1 Pulmonary Valve PV Peak Omjhdugl69.8cm/sPV Peak Grad.3mmHg Tricuspid Valve TR P. Wqefycgd086aw/sRAP IUXHRAFE2hdXx TR Peak Gr.84juRzCAWQ99qbRl Pulmonary Vein S1 Ijbeiqwe79.8cm/sD2 Pgtbzrog03.1cm/s LEFT VENTRICLE The left ventricle is normal size. There is mild to moderate concentric left ventricular hypertrophy. The left ventricular systolic function is normal and the ejection fraction is within normal range. T he Ejection Fraction is 60-65%. There is normal LV segmental wall motion. Transmitral Doppler flow pa ttern is Grade II-pseudonormal filling dynamics. RIGHT VENTRICLE The right ventricle is normal size. There is normal right ventricular wall thickness. The right ventr icular systolic function is normal. ATRIA The left atrium is mildly dilated. The right atrium size is normal. The interatrial septum is intact with no evidence for an atrial septal defect or patent foramen ovale as noted on 2-D or Doppler imagi ng. AORTIC VALVE The aortic valve is normal in structure and function. Doppler and Color Flow revealed no significant aortic regurgitation. There is no significant aortic valvular stenosis. MITRAL VALVE Mitral annular calcification is mild. There is no evidence of mitral valve prolapse. There is no mitr al valve stenosis. Doppler and Color-flow revealed trace mitral regurgitation. TRICUSPID VALVE The tricuspid valve is normal in structure and function. Doppler and Color Flow revealed trace tricus pid regurgitation with an estimated PAP of 38 mmHg. There is no tricuspid valve stenosis. PULMONIC VALVE The pulmonic valve is not well visualized. Doppler and Color Flow revealed trace pulmonic valvular re gurgitation. There is no pulmonic valvular stenosis. GREAT VESSELS The aortic root is normal in size. The IVC is normal in size and collapses >50% with inspiration. PERICARDIAL EFFUSION There is no evidence of significant pericardial effusion. Critical Notification Critical Value: No <Conclusion> The left ventricular systolic function is normal and the ejection fraction is within normal range. Th e Ejection Fraction is 60-65%. There is normal LV segmental wall motion. There is mild to moderate concentric left ventricular hypertrophy. Signed by : Tera Seymour, Electronically Approved : 09/19/2020 12:22:15
[2020-09-19] MEDS: CYCLOBENZAPRINE 10 MG TABLET. PO PRN (13:59)
[2020-09-19] MEDS: ASPIRIN ENTERIC COATED 81 MG TABLET.DR. PO SCH (14:00)
[2020-09-19 15:00] VITALS: BP 118/73
[2020-09-19 19:42] VITALS: BP 100/52
[2020-09-19] MEDS ORDERED: ATORVASTATIN CALCIUM 20 MG TABLET PO SCH (21:00)
[2020-09-19 23:12] VITALS: BP 150/63
--- NOTE | 2020-09-20 00:05 | PN ---
DATE: 09/19/2020 SUBJECTIVE: The patient is resting, slightly propped up in bed, still complaining of severe pain in her left hip joint, particularly when they try to put ____ roll her to the left side. She has markedly abnormal EKG, which is different from previous EKG with significant T-wave inversion in the anterolateral leads, although the patient herself denied any chest pain or shortness of breath. We did consult the Cardiology team and her troponin was slightly elevated at 0.085. She has had an echocardiogram done, which showed that the patient's left ventricular systolic function is normal, ejection fraction is within normal range. Her ejection fraction was 60%-65%. She has normal left ventricular segmental wall motion. There is nnkp-rq-pmmgpfgl concentric left ventricular hypertrophy. PHYSICAL EXAMINATION: GENERAL: When I examined her this afternoon, she looked well and was clearly in no apparent respiratory distress, slightly pale, but no jaundice, cyanosis or thyromegaly. No jugular venous distention. No limb edema. VITAL SIGNS: Her heart rate was 54, blood pressure was 125/57, temperature was 98.1, respiratory rate 20, and oxygen saturation was 95%. HEENT: Showed normocephalic, atraumatic. NECK: Supple. HEART: Normal first and second heart sounds. No gallop, rub or murmur. CHEST: Clear to auscultation. No crepitation or rhonchi. ABDOMEN: Distended, soft, nontender. NEUROLOGIC: She is grossly intact. She obviously mostly bedbound as she has dislocated left hip joint. Her intake and output were incompletely recorded. LABORATORY DATA: Her lab work this morning showed a white cell count of 6300, hemoglobin 11.5, hematocrit 35, MCV 92, and platelet count of 192,000. Her chemistry showed a serum sodium 133, potassium 4.1, chloride 100, bicarbonate 30, anion gap of 3, BUN 18, creatinine 1, estimated GFR was 55 mL per minute. Her glucose was 84, calcium was 8.3. Total bilirubin, AST, ALT, alkaline phosphatase were normal. Her troponin was slightly elevated at 0.085. C-reactive protein was 18.9. Total protein 5.4. Albumin was 2.5. Urinalysis essentially unremarkable. ASSESSMENT: 1. This is a 65-year-old female patient who was admitted with dislocated left hip joint and fracture of the acetabular screws. She is scheduled for elective revision on 09/26/2020 at [facility] by Dr. Talbot. 2. Severe self-care deficit. 3. Morbid obesity and poor mobility. 4. The patient has multiple other medical problems including: A. Seizure disorder. B. Hypertension. C. Chronic obstructive pulmonary disease. D. Morbid obesity. E. Osteoarthritis and osteoporosis. F. History of deep vein thrombosis, for which she has an inferior vena cava filter and currently on apixaban 5 mg twice a day. PLAN: Obviously to continue with pain management. Continue with DVT prophylaxis and continue with all her seizure medication. She was seen by the air pollution inspector and her echocardiogram showed that she has normal left ventricular systolic function, ejection fraction. Given that she is incontinent and with poor mobility and difficulty with ____ when they roll her out to left side. We will arrange her for Philip catheter. JENNIFER LEYVA MD DR: DRAKE/tracy JOB#: [id number] / [id number]
[2020-09-20] MEDS: CYCLOBENZAPRINE 10 MG TABLET. PO PRN (02:58)
[2020-09-20 05:30] VITALS: BP 142/68
[2020-09-20] MEDS: LEVOTHYROXINE 125 MCG TABLET PO SCH (05:41)
[2020-09-20] MEDS ORDERED: REGADENOSON 0.4 MG/5 ML DISP.SYRIN. IV ONE (08:00)
--- NOTE | 2020-09-20 08:02 | PDOC ---
CARDIO Progress Notes Date & Time Date of Service DATE: 09/20/20 TIME: 07:57 Time of Evaluation 07:57 Subjective Notes No chest pain, palpitations, dizziness. S/o hip pain Vitals Vitals Vital Signs Date Time Temp Pulse Resp B/P (MAP) Pulse Ox O2 Delivery O2 Flow Rate FiO2 09/20/20 05:30 99.2 52 20 142/68 (92) 93 Room Air Weight Weight [ ] Input and Output I.O. Intake and Output 09/20/20 07:00 Intake Total 960 ml Output Total 2200 ml Balance -1240 ml Intake Oral 960 ml Output Urine Total 2200 ml # Voids 2 Laboratory Labs Laboratory Tests Test 09/18/20 16:40 09/18/20 22:00 09/19/20 05:45 09/19/20 06:24 Coronavirus (PCR) Not detected (Not Detected) Urine Collection Type Unknown Urine Color Yellow Urine Clarity Clear Urine pH 7.0 Urine Specific [place] 1.020 Urine Protein Neg (NEG-TRACE) Urine Glucose (UA) Neg mg/dL (NEG) Urine Ketones (Stick) Neg mg/dL (NEG) Urine Blood Neg (NEG) Urine Nitrite Neg (NEG) Urine Bilirubin Neg (NEG) Urine Urobilinogen Dipstick 0.2 mg/dL (0.2 mg/dL) Urine Leukocyte Esterase Neg (NEG) Urine RBC 0 /HPF (0-2) Urine WBC Rare /HPF (0-4) Urine Squamous Epithelial Cells Occ /LPF Urine Bacteria 0 /HPF (0-FEW) White Blood Count 6.3 x10^3/uL (4.0-11.0) Red Blood Count 3.83 x10^6/uL (3.50-5.40) Hemoglobin 11.5 g/dL (12.0-15.5) Hematocrit 35.4 % (36.0-47.0) Mean Corpuscular Volume 92 fL (79-100) Mean Corpuscular Hemoglobin 30 pg (25-35) Mean Corpuscular Hemoglobin Concent 33 g/dL (31-37) Red Cell Distribution Width 16.1 % (11.5-14.5) Platelet Count 192 x10^3/uL (140-400) Neutrophils (%) (Auto) 60 % (31-73) Lymphocytes (%) (Auto) 25 % (24-48) Monocytes (%) (Auto) 13 % (0-9) Eosinophils (%) (Auto) 1 % (0-3) Basophils (%) (Auto) 1 % (0-3) Neutrophils # (Auto) 3.7 x10^3uL (1.8-7.7) Lymphocytes # (Auto) 1.6 x10^3/uL (1.0-4.8) Monocytes # (Auto) 0.8 x10^3/uL (0.0-1.1) Eosinophils # (Auto) 0.1 x10^3/uL (0.0-0.7) Basophils # (Auto) 0.0 x10^3/uL (0.0-0.2) Sodium Level 133 mmol/L (136-145) Potassium Level 4.1 mmol/L (3.5-5.1) Chloride Level 100 mmol/L (98-107) Carbon Dioxide Level 30 mmol/L (21-32) Anion Gap 3 (6-14) Blood Urea Nitrogen 18 mg/dL (7-20) Creatinine 1.0 mg/dL (0.6-1.0) Estimated GFR (Cockcroft-Gault) 55.8 BUN/Creatinine Ratio 18 (6-20) Glucose Level 84 mg/dL (70-99) Calcium Level 8.3 mg/dL (8.5-10.1) Total Bilirubin 0.4 mg/dL (0.2-1.0) Aspartate Amino Transf (AST/SGOT) 22 U/L (15-37) Alanine Aminotransferase (ALT/SGPT) 23 U/L (14-59) Alkaline Phosphatase 57 U/L (46-116) Troponin I Quantitative 0.085 ng/mL (0-0.055) C-Reactive Protein 18.9 mg/L (0-3.3) Total Protein 5.4 g/dL (6.4-8.2) Albumin 2.5 g/dL (3.4-5.0) Albumin/Globulin Ratio 0.9 (1.0-1.7) Triglycerides Level 58 mg/dL (0-150) Cholesterol Level 188 mg/dL (0-200) LDL Cholesterol, Calculated 115 mg/dL (0-100) VLDL Cholesterol, Calculated 11 mg/dL (0-40) Non-HDL Cholesterol Calculated 126 mg/dL (0-129) HDL Cholesterol 62 mg/dL (40-60) Cholesterol/HDL Ratio 3.0 Thyroid Stimulating Hormone (TSH) 3.944 uIU/mL (0.358-3.740) Nasal Screen MRSA (PCR) Positive (NEGATIVE) Test 09/19/20 14:00 Troponin I Quantitative 0.038 ng/mL (0-0.055) Physical Exams HEENT: Neck Supple W Full Motion Chest: Symmetric Lungs: Clear to Auscultation Heart: RRR Abdomen: Soft N/T, Other (obese ) Extremities: No Edema Neurology: alert, oriented, follow commands Assessment Assessment 1. Left hip pain; s/p failed left hip arthroplasty. surgical date 03/21/20. scheduled for revision next Friday with Dr. Velasquez in [place] 2. Abnormal EKG; noted with significant t-wave inversion of anterolateral leads, which is significant change from previous EKG 10/12/15. CP free. Trop peak at 0.08. Possibly type II, demand ischemia. Echo WNL 3. Hypertension; controlled 4. Hyperlipidemia; LDL 115 5. Hypothyroidism 6. H/o DVT's s/p IVC filter. chronic OAC with Eliquis 7. Seizure disorder on Depakote 8. Morbid obestiy Recommendations ASA, statin Given abnormal EKG, mildly elevated troponin, and left hip revision planned next Friday, would recommend further ischemic evaluation ei inpatient MPI. Discussed with Dr. Velasquez who would like to proceed with MPI for risk stratification, surgical clearance. MARIEL GUZMAN APRN Sep 20, 2020 08:02
[2020-09-20] MEDS: GABAPENTIN 300 MG CAPSULE. PO SCH ×2 (09:42→13:20)
[2020-09-20] MEDS: DIVALPROEX SODIUM 250 MG TABLET.DR. PO SCH (09:42)
[2020-09-20] MEDS: APIXABAN 5 MG TABLET. PO SCH (09:42)
[2020-09-20] MEDS: DULoxetine HCL 60 MG CAPSULE.DR PO SCH (09:43)
[2020-09-20] MEDS: MULTIVITAMIN with MINERAL TABLET. PO SCH (09:43)
[2020-09-20] MEDS: FERROUS SULFATE 325 MG TABLET. PO SCH (09:43)
[2020-09-20] MEDS: clonazePAM 0.5 MG TABLET PO SCH (09:44)
[2020-09-20] MEDS: diazePAM 5 MG TABLET. PO SCH ×2 (09:45→13:19)
[2020-09-20] MEDS: ASPIRIN ENTERIC COATED 81 MG TABLET.DR. PO SCH (09:47)
--- NOTE | 2020-09-20 10:00 | EKG ---
[address] [address] Test Date: 2020-09-20 Test Time: 09:03:58 Pat Name: JOSETTE ZHANG Department: Room: 113 A Gender: F Cutting Machine Operator Helper: : [id number] Requested By: MARIEL GUZMAN Order Number: [id number] Reading MD: Measurements Intervals [place] Rate: 69 P: 41 NV: 166 QRS: 22 QRSD: 98 T: 142 QT: 406 QTc: 437 Interpretive Statements SINUS RHYTHM VENTRICULAR PREMATURE COMPLEX(ES) T ABNORMALITY IN ANTERIOR LEADS LATERAL LEADS ABNORMAL ECG RI6.01 No previous ECG available for comparison
--- NOTE | 2020-09-20 10:22 | PN ---
DATE: 09/20/2020 ATTENDING PHYSICIANS: Dr. Baltazar and Dr. Phillips. SUBJECTIVE: No new complaints. She is in the midst of getting her nuclear medicine stress test. Echocardiogram showed an ejection fraction of 60%. Cardiology evaluation is appreciated. Please note that her troponin was slightly elevated at 0.08 whether this is stress ischemia or a true ischemia remains to be seen. OBJECTIVE FINDINGS: VITAL SIGNS: Blood pressure is 142/68 mmHg, pulse 66 and regular, temperature 99.1 degrees Fahrenheit, and her oxygen saturation 93% on room air. HEENT: Head is without trauma. Pupils are reactive. Sclerae nonicteric. Oropharynx is clear. NECK: Supple, no bruits. LUNGS: Good breath sounds. CARDIOVASCULAR: Showed regular heart tones. No gallops. ABDOMEN: Obese, protuberant. No organomegaly. Bowel sounds were hypoactive. EXTREMITIES: Showed debilitation as well as trace edema. NEUROLOGIC: Focally intact. Speech is fluent. She is nonambulatory. ASSESSMENT: 1. A 65-year-old female with hip dislocation. She has fracture of the acetabular screws scheduled for elective revision on 09/26/2020 in [facility]. 2. Generalized debilitation. 3. Abnormal EKG with elevation of troponins. 4. Hypertension. 5. Chronic obstructive pulmonary disease. 6. Degenerative arthritis. 7. History of deep venous thrombosis, on anticoagulation. She has an inferior vena cava filter. PLAN: 1. She is in the midst of getting her adenosine thallium nuclear medicine stress test. 2. Continue home meds. 3. If the stress test was nonischemic. She is going to go to [facility] for convulsant until she has elective surgery. If indeed the nuclear medicine stress test is abnormal, then further evaluation and cardiac catheterization will be indicated prior to elective surgery. NIRALI PHILLIPS MD DR: ADRIA/tracy JOB#: [id number] / [id number]
--- NOTE | 2020-09-20 10:54 | NUR ---
IP: patient test positive for MRSA nasal screen. As this is colonization patient does not require isolation at this time.
[2020-09-20 11:07] VITALS: BP 157/77
--- NOTE | 2020-09-20 11:20 | RAD ---
MR#: [id number] Date of Study: 09/20/2020 Ordering Physician: MARIEL GUZMAN, Referring Physician: MINOR CARY Tech: DENZEL Jordan ARRT (R) (N) APPROVED REPORT Test Type: Pharmacological Stress Nurse/Tech: BIANCA Cary Test Indications: ABN. EKG, ELEVATED TROPONIN Cardiac History: See Electronic Medical Record Medications: See Electronic Medical Record Medical History: See Electronic Medical Record Resting ECG: SR W/ PVCs Resting Heart Rate: 58 bpm Resting Blood Pressure: 119/71mmHg Pretest Chest Pain: None Nurse/Tech Notes ST W/PVC Consent: The procedure was explained to the patient in lay terms. Informed consent was witnessed. Heriberto eout was entered into [employer]. History and Stress Test performed by DENZEL Jordan ARRT (R) (N) Pharm. Details Pharmacologic stress testing was performed using 0.4mg per 5ml of regadenoson given intravenously ove r 7-10 seconds. Stress Symptoms No chest pain or symptoms. POST EXERCISE Reason for Termination: Infusion complete Target HR: No Max HR: 112 bpm Exercise duration: 6 min:sec, Stage Max Blood Pressure: 134/74mmHg Blood Pressure response to exercise: Normal blood pressure response during stress. Chest Pain: No. Arrhythmia: No. ST Change: No. INTERPRETATION Stress EKG Conclusion: SR W/ PVCs Resting EKG with anterior TWI. Imaging Protocol IMAGE PROTOCOL: Stress Tc-99m/rest Tc-99m 2 days Rest: Stress: Viability: Radiopharm.Tc99m Sestamibi [id number] Img Date 09/20/2020 Inj-Img [id number]. Stress Admin Site: IV - Right HandAdministrator: DENZEL Jordan ARRT (R)(N) STRESS DATA End Diast. Vol.126.0mlAv. Heart Rate73.0bpm End Syst. Vol.56.0mlCO Index BSA0.0L/min Myocardial Gjlp669.0gEject. Qqnvjbia43.0% Stress Rates Pk. Fill Rate1.56EDV/secLVtime Pk. Fill 76.00msec Pk. Empty Rate2.48ESV/secLVtime Pk. Eject86.01msec 10/01 Pk. Fill1.21EDV/sec Stress Scores Regional WT0.00Summed WT15.00 Regional WM0.00Summed WM12.00 LV Perfusion Normal perfusion at stress. Wall Motion Normal wall motion. EF 56% LV Perf. Quant 17 Seg. SSS1.00 Stress Defect Extent (% LAD)10.00Rest Defect Extent (% LAD)Rev. Defect Extent (% LAD) Stress Defect Extent (% LCX) 0.00Rest Defect Extent (% LCX)Rev. Defect Extent (% LCX) Stress Defect Extent (% RCA)0.00Rest Defect Extent (% RCA)Rev. Defect Extent (% RCA) Stress Defect Extent (% JOANA)4.60Rest Defect Extent (% JOANA)Rev. Defect Extent (% JOANA) Other Information Quality:Average Risk Assessment: Low Risk Conclusion 1. Resting EKG changes to suggest anterior/lateral ischemia, unchanged with vasodilator stress. 2. Normal perfusion at stress. 3. Normal wall motion. EF 56% 4. Low risk study overall. Signed by : Tera Seymour, Electronically Approved : 09/20/2020 11:19:40
[2020-09-20] MEDS: traMADol 50 MG TABLET PO PRN (13:20)
--- NOTE | 2020-09-20 15:00 | NUR ---
Transition Record was [facility] to [facility] by case management with the following elements: Reason for admission, procedures, tests, principal diagnosis, pending studies, patient instructions, 21/04 contact information for unit, phone number to obtain pending test results, plan for follow-up care, physician follow-up, advanced directive information, and medication list with dose, duration and instructions. This information was included in the following documents: History and physical, lab results, study results, progress notes, social work planning form, DC instruction form, patient visit summary, and medication reconciliation form. Record discussed with/ report given to: SARAHI Araya at [facility] All current lab results faxed to Dr. Velasquez.
--- NOTE | 2020-09-20 17:39 | DS ---
DATE OF DISCHARGE: 09/20/2020 ATTENDING PHYSICIANS: Dr. Baltazar and Dr. Phillips FINAL DISCHARGE DIAGNOSES: 1. Chronic dislocation of the left hip, failure of left total hip arthroplasty. 2. Morbid obesity. 3. Abnormal ECG. 4. Parkinson's disease. 5. Generalized debilitation. 6. Degenerative arthritis. 7. Gastroesophageal reflux disease. 8. Chronic obstructive pulmonary disease. 9. History of deep venous thrombosis, chronic anticoagulation. 10. Peripheral vascular disease. 11. Hypothyroidism, on replacement. HISTORY OF PRESENT ILLNESS: This is a 65-year-old female who had a previous left total hip arthroplasty. She had hip pain and x-rays demonstrated chronic hip dislocation with ____. She was scheduled to have a revision done by orthopedic surgeon on 09/26/2020. She had a markedly abnormal ECG. She was admitted for further treatment and evaluation. PHYSICAL EXAMINATION: Please see the dictated note. PERTINENT LABORATORY AND X-RAY STUDIES: Her hemoglobin was 11.5 g/dL with a white count of 6300. Cardiac enzymes peaked at 0.085, repeat was down to 0.038. Transaminases, cholesterol were all within normal range. Creatinine was 1.0 mg/dL. Electrolytes within normal range. BNP was 884. COURSE IN THE HOSPITAL: The patient was admitted. She was seen in consultation by Cardiology Services, their recommendation on the chart. Because of the abnormal ECG, she did undergo a nuclear medicine stress test on the third hospital day. The interpretation of that was normal perfusion at stress, normal wall motion, ejection fraction estimated at 56%. It was determined to be low risk. Home meds were continued. She did not have any further distress. Arrangements were then made on the fourth hospital day for the patient to go to [facility] for convalescence until her anticipated procedure 09/26 in 6 days. Her discharge meds are basically unchanged. She will continue her Tylenol, Eliquis 5 mg b.i.d., Tegretol, clonazepam, clonidine, cyclobenzaprine, diazepam, Depakote, Cymbalta, ferrous sulfate, Neurontin, Synthroid, lisinopril, metoprolol, multivitamin, potassium, Ultram ____ unchanged. She was on both torsemide and Lasix, I held the Lasix dose. At this time, we recommended they hold the apixaban for 48 hours prior to anticipated elective procedure, I will make a note of that on her skilled nursing ____. Her prognosis is fair. She was discharged from our hospital in stable condition with explicit instructions and followup care. NIRALI PHILLIPS MD DR: ADRIA/tracy JOB#: [id number] / [id number] DEIDRA Barclay MD, AHMED MD
== END 2020-09-20 15:00 ==
LOC: ER 16:40 → 1 SOUTH 17:30 → INTOOBSV 09-18 08:16 → OBSVTOIN 09-18 08:16
PROVIDERS: ADMIT Internal Medicine; ATTEND Internal Medicine
DX: T84.021A Dislocation of internal left hip prosthesis, initial encounter (principal); Z20.828 Contact with and (suspected) exposure to other viral communicable diseases; E03.9 Hypothyroidism, unspecified; E66.01 Morbid (severe) obesity due to excess calories; I11.9 Hypertensive heart disease without heart failure; I73.9 Peripheral vascular disease, unspecified; D64.9 Anemia, unspecified; F32.9 Major depressive disorder, single episode, unspecified; F41.9 Anxiety disorder, unspecified; E78.00 Pure hypercholesterolemia, unspecified; E78.5 Hyperlipidemia, unspecified; M15.9 Polyosteoarthritis, unspecified; M81.0 Age-related osteoporosis without current pathological fracture; J44.9 Chronic obstructive pulmonary disease, unspecified; K21.9 Gastro-esophageal reflux disease without esophagitis; G20 Parkinson's disease; G40.909 Epilepsy, unspecified, not intractable, without status epilepticus; Z79.01 Long term (current) use of anticoagulants; Z79.899 Other long term (current) drug therapy; Z82.0 Family history of epilepsy and other diseases of the nervous system; Z86.718 Personal history of other venous thrombosis and embolism; Z96.611 Presence of right artificial shoulder joint; Z87.891 Personal history of nicotine dependence; Z68.41 Body mass index [BMI] 40.0-44.9, adult; Z96.653 Presence of artificial knee joint, bilateral; Z98.41 Cataract extraction status, right eye; Z98.42 Cataract extraction status, left eye; Z88.0 Allergy status to penicillin; Z88.8 Allergy status to other drugs, medicaments and biological substances
CPT/HCPCS: 36415; 78452; 80053; 80061; 81001; 84443; 84484; 85025; 86140; 87641; 93005; 93017; 93306; 99284; A9500; G0378; J2785; J7040; U0003; 99285; G0379

== ENCOUNTER → 2021-03-14 | Day surgery (SDC) | payer OTHER, MEDICAID ==
[~2021-03-14] MED LIST changes: +APIX5TAB3 PO; +BUPIVACAINE MPF 0.25% 10 ML VIAL. ONE; +CLON0.1T PO; +CLON0.5T4 PO; +CYCL5TAB PO; +DEXAMETHASONE SOD PHOS 10 MG/ML VIAL. ONE; +DIAZ5TAB4 PO; +DULO60CA6 PO; +FURO40TA4 PO; +LEVO125T5 PO; +LIDOCAINE 1% PF 30 ML VIAL. ONE; +LISI40TA6 PO; +METO25TA4 PO; +MULT-735 PO; +PROM12.58 PO; +TORS20TA2 PO; +TRAM50TA PO
[2021-03-14 13:49] VITALS: BP 191/81
== END | disposition home or self-care (01) ==
LOC: SURG 12:13
PROVIDERS: ATTEND Anesthesiology
DX: M54.81 Occipital neuralgia (principal); G40.909 Epilepsy, unspecified, not intractable, without status epilepticus; I25.118 Atherosclerotic heart disease of native coronary artery with other forms of angina pectoris; I13.0 Hypertensive heart and chronic kidney disease with heart failure and stage 1 through stage 4 chronic kidney disease, or unspecified chronic kidney disease; I50.9 Heart failure, unspecified; N18.9 Chronic kidney disease, unspecified; J44.9 Chronic obstructive pulmonary disease, unspecified; E78.00 Pure hypercholesterolemia, unspecified; E66.9 Obesity, unspecified; K21.9 Gastro-esophageal reflux disease without esophagitis; M19.90 Unspecified osteoarthritis, unspecified site; E03.9 Hypothyroidism, unspecified; F32.9 Major depressive disorder, single episode, unspecified; Z88.0 Allergy status to penicillin; Z88.8 Allergy status to other drugs, medicaments and biological substances; Z79.899 Other long term (current) drug therapy; Z95.5 Presence of coronary angioplasty implant and graft; Z86.718 Personal history of other venous thrombosis and embolism; Z87.440 Personal history of urinary (tract) infections; Z82.49 Family history of ischemic heart disease and other diseases of the circulatory system
CPT/HCPCS: 64405; J1100; J3490

== ENCOUNTER 2021-04-19 12:47 | Emergency (ER) | payer MEDICARE, MEDICAID ==
[~2021-04-19] VITALS: Ht 165.1 cm; Wt 119.0 kg
[~2021-04-19 12:47] MED LIST changes: -BUPIVACAINE MPF 0.25% 10 ML VIAL. ONE; -DEXAMETHASONE SOD PHOS 10 MG/ML VIAL. ONE; -LIDOCAINE 1% PF 30 ML VIAL. ONE
[2021-04-19 14:02] VITALS: BP 138/64
--- NOTE | 2021-04-19 15:00 | RAD ---
INDICATION: Reason: RT lower leg bruising, swelling / Spl. Instructions: / History: COMPARISON: None. TECHNIQUE: Grayscale, color and doppler ultrasound images were obtained of the right lower extremity venous vasculature. RIGHT: No thrombus identified in the common femoral vein, femoral vein, popliteal vein. Limited visualizatio n of calf veins secondary to overlying structures obscuring. IMPRESSION: * No thrombus identified in deep venous system of right lower extremity. Electronically signed by: Gene Hadley MD (04/19/2021 2:57 PM) [id number]
[2021-04-19] MEDS ORDERED: IBUPROFEN 600 MG TABLET. PO ONE (15:30)
[2021-04-19] MEDS ORDERED: SMZ/TMP 800/160MG TABLET. PO ONE (15:30)
[2021-04-19] MEDS ORDERED: SULF1TAB24 PO (15:34)
--- NOTE | 2021-04-19 15:34 | PHYS DOC ---
Past History Past Medical History: Anxiety, Arthritis, Asthma, Constipation, COPD, DVT, GERD, High Cholesterol, Hypothyroid, Vascular Disease, Other Past Surgical History: Knee Replacement Alcohol Use: None Drug Use: None General Adult EDM: Chief Complaint: LOWER EXTREMITY SWELLING HPI: HPI: Patient is a 65-year-old female being seen in the ER today for right lower extremity swelling, redness, pain, bruising that started on Friday. Patient reports that she called her doctor and notified her of her symptoms and she told her to go to the ER to rule out DVT. Patient has a history of DVTs and takes Eliquis. Patient denies any injury. Patient rates pain 6 out of 10, no radiation, she has been taking Tylenol at home. She reports not missing any doses of her Eliquis. Patient denies any falls, chest pain, shortness of breath, decreased sensation in extremity, decreased range of motion. Patient reports not being on any antibiotics recently and no history of MRSA. Review of Systems: Review of Systems: 14 body systems of the review of systems have been reviewed. See HPI for pertinent positive and negative responses, otherwise all other systems are negative, nonpertinent or noncontributory Allergies: Allergies: Allergies Coded Allergies Type Severity Reaction Last Updated Verified Penicillins Allergy Intermediate rash 04/19/21 No adhesive tape Allergy Intermediate 04/19/21 Yes Physical Exam: PE: Constitutional: Well developed, well nourished, no acute distress, non-toxic appearance. [] HENT: Normocephalic, atraumatic Eyes: PERRL, conjunctiva normal, no discharge. [] Neck: Normal range of motion, no stridor Cardiovascular:Heart rate regular rhythm, no murmur [] Lungs & Thorax: Bilateral breath sounds clear to auscultation [] Abdomen: Bowel sounds normal, soft, no tenderness, no masses, no pulsatile masses. [] Skin: Warm, dry, erythema and blistering noted to anterior aspect of right lower extremity, ecchymosis noted to right ankle and posterior foot. Back: Normal range of motion Extremities: No tenderness, no cyanosis, no clubbing, ROM intact, 2+ pitting edema to left lower extremity, 3+ pitting edema to right lower extremity, erythema and blistering noted to anterior aspect of right lower extremity without weeping, decreased DP/PT pulses bilaterally due to edema, neuro intact, range of motion intact. Positive Homans' sign. Neurologic: Alert and oriented X 3, normal motor function, normal sensory function, no focal deficits noted. [] Psychologic: Affect normal, judgement normal, mood normal. [] Current Patient Data: Vital Signs: Vital Signs Date Time Temp Pulse Resp B/P (MAP) Pulse Ox O2 Delivery O2 Flow Rate FiO2 04/19/21 14:02 97.9 61 20 138/64 (88) 97 Room Air EKG: EKG: [] Radiology/Procedures: Radiology/Procedures: PROCEDURE: VENOUS LOWER EXTREMITY RIGHT INDICATION: Reason: RT lower leg bruising, swelling / Spl. Instructions: / History: COMPARISON: None. TECHNIQUE: Grayscale, color and doppler ultrasound images were obtained of the right lower extremity venous vasculature. RIGHT: No thrombus identified in the common femoral vein, femoral vein, popliteal vein. Limited visualization of calf veins secondary to overlying structures obscuring. IMPRESSION: * No thrombus identified in deep venous system of right lower extremity. Electronically signed by: Elliot Hadley MD (04/19/2021 2:57 PM) [id number] DICTATED AND SIGNED BY: ELLIOT HADLEY MD DATE: 04/19/21 1455 CC: DEIDRA LEMUS MD; SERGIO HUNG ELECTRONIC EQUIPMENT TRADES WORKER ~MTH0 0 Heart Score: C/O Chest Pain: No Risk Factors: Risk Factors: DM, Current or recent (<one month) smoker, HTN, HLP, family history of CAD, obesity. Risk Scores: Score 0 - 3: 2.5% MACE over next 6 weeks - Discharge Home Score 4 - 6: 20.3% MACE over next 6 weeks - Admit for Clinical Observation Score 7 - 10: 72.7% MACE over next 6 weeks - Early Invasive Strategies Course & Med Decision Making: Course & Med Decision Making Pertinent Labs and Imaging studies reviewed. (See chart for details) Patient is a 65-year-old female being sent in by her primary care provider to rule out a DVT. Wells score 2. An ultrasound was performed of her right lower extremity that was negative for any blood clots. Patient does have redness and blistering to her right lower extremity. She will be treated with an antibiotic for skin infection and notes pain medication given. I discussed with patient all findings and diagnostic testing as well as the need to follow-up with PCP for further evaluation and treatment or return to the ER if any new or worsening symptoms. Strict return precautions were also discussed at length. Patient voiced understanding and agreement with the plan. Patient is hemodynamically stable at the time of disposition. Hajaon Disclaimer: Beth Disclaimer: This electronic medical record was generated, in whole or in part, using a voice recognition dictation system. Departure Departure: Impression: Primary Impression: Cellulitis Qualified Codes: L03.115 - Cellulitis of right lower limb Disposition: HOME / SELF CARE / HOMELESS Condition: GOOD Referrals: DEIDRA LEMUS MD (PCP) Patient Instructions: Cellulitis Additional Instructions: You were seen in the ER today for increased swelling, pain, redness, bruising to the right lower extremity. An ultrasound was performed and it was negative for any blood clots. Please follow-up with your primary care doctor tomorrow regarding your ER visit that you had today. Please continue to take your med ications as prescribed at home. It is likely that you have a skin infection of your right lower extremity due to the redness in the blistering. You are being sent home with an antibiotic. Please start and finish this antibiotic completely. Please monitor for any worsening of your condition. If you develop increased pain, increased redness, drainage, decreased sensation in the leg, chest pain, shortness of breath please return to the ER. EMERGENCY DEPARTMENT GENERAL DISCHARGE INSTRUCTIONS Thank you for coming to [facility] (ED) today and trusting us with you care. We trust that you had a positivie experience in our Emergency Department. If you wish to speak to the department management, you may call the director at [phone]. YOUR FOLLOW UP INSTRUCTIONS ARE FOLLOWS: 1. Do you have a private Doctor? If you do not have a private doctor, please a sk for a resource list of physicians or clinics that may be able to assist you with follow up care. 2. The Emergency Physician has interpreted your x-rays. The X-Ray specialist will also review them. If there is a change in the findings, you will be notified in 48 hours when at all possible. 3. A lab test or culture has been done, your results will be reviewed and you will be notified if you need a change in treatment. ADDITIONAL INSTRUCTIONS AND INFORMATION: 1. Your care today has been supervised by a physician who is specially trained in emergency care. Many problems require more than one evaluation for a complete diagnosis and treatment. We recommend that you schedule your follow up appointment as recommended to ensure complete treatment of you illness or injury. If you are unable to obtain follow up care and continue to have a problem, or if your condition worsens, we recommend that you return to the ED. 2. We are not able to safely determine your condition over the phone nor are we able to give sound medical advice over the phone. For these safety reasons, if you call for medical advice we will ask you to come to the ED for further evaluation. 3. If you have any questions regarding these discharge instructions please call the ED at [phone]. SAFETY INFORMATION: In the interest of safety, wellness, and injury prevention; we encourage you to wear your sealbelt, if you smoke; quite smoking, and we encourage family to use a protective helmet for bicycling and other sporting events that present an increased risk for head injury. IF YOUR SYMPTOMS WORSEN OR NEW SYMPTOMS DEVELOP, OR YOU HAVE CONCERNS ABOUT YOUR CONDITION; OR IF YOUR CONDITION WORSENS WHILE YOU ARE WAITING FOR YOUR FOLLOW UP APPOINTMENT; EITHER CONTACT YOUR PRIMARY CARE DOCTOR, THE PHYSICIAN WHOSE NAME AND NUMBER YOU WERE GIVEN, OR RETURN TO THE ED IMMEDIATELY. Scripts Sulfamethoxazole/Trimethoprim (BACTRIM DS TABLET) 1 Each Tablet 1 TAB PO BID for skin infection for 5 Days, #10 TAB 0 Refills Prov: SERGIO HUNG APRN 04/19/21 SERGIO HUNG APRN Apr 19, 2021 15:34
== END 2021-04-19 15:40 | disposition home or self-care (01) ==
LOC: ER 12:47
DX: L03.115 Cellulitis of right lower limb (principal); J44.9 Chronic obstructive pulmonary disease, unspecified; K21.9 Gastro-esophageal reflux disease without esophagitis; E78.5 Hyperlipidemia, unspecified; Z88.0 Allergy status to penicillin
CPT/HCPCS: 93971; 99284-25

== ENCOUNTER → 2021-05-16 | Day surgery (SDC) | payer OTHER, MEDICAID ==
[~2021-05-16] MED LIST changes: +BUPIVACAINE MPF 0.25% 10 ML VIAL. ONE; +DEXAMETHASONE SOD PHOS 10 MG/ML VIAL. ONE; +SULF1TAB24 PO
[2021-05-16 12:25] VITALS: BP 189/97
== END ==
LOC: SURG 12:16
PROVIDERS: ATTEND Anesthesiology
DX: M54.81 Occipital neuralgia (principal); I10 Essential (primary) hypertension; E03.9 Hypothyroidism, unspecified; Z79.899 Other long term (current) drug therapy; Z95.1 Presence of aortocoronary bypass graft
CPT/HCPCS: 64405; J1100; J3490

== ENCOUNTER → 2021-07-18 | Day surgery (SDC) | payer OTHER ==
[~2021-07-18] MED LIST changes: -DULO60CA6 PO; +DULO60CA7 PO; +LIDOCAINE 1% PF 30 ML VIAL. ONE
[2021-07-18 14:15] VITALS: BP 171/85
== END | disposition home or self-care (01) ==
LOC: SURG 13:35
PROVIDERS: ATTEND Anesthesiology
DX: M54.81 Occipital neuralgia (principal); I10 Essential (primary) hypertension; E03.9 Hypothyroidism, unspecified; Z98.890 Other specified postprocedural states; Z79.899 Other long term (current) drug therapy; Z79.01 Long term (current) use of anticoagulants; Z96.643 Presence of artificial hip joint, bilateral
CPT/HCPCS: 64405; J1100; J3490

== ENCOUNTER → 2021-11-28 | Day surgery (SDC) | payer OTHER ==
[~2021-11-28] MED LIST changes: +BUPIVACAINE MPF 0.25% 30 ML VIAL. INJ ONE; +DEXAMETHASONE SOD PHOS 10 MG/ML VIAL. IV ONE; +LIDOCAINE 1% PF 30 ML VIAL. INJ ONE; +MIDAZOLAM HCL PF 2 MG/2 ML VIAL. IVP ONE; +MIDAZOLAM HCL PF 2 MG/2 ML VIAL. ONE; +ONDA8TAB15 PO; +PANT40TA6 PO; +TIZA-75 PO; -TIZA4TAB2 PO; +flaxseed
[2021-11-28 11:10] VITALS: BP 174/95
--- NOTE | 2021-11-28 12:05 | NUR ---
Patient observed as hypertensive throughout visit and procedure. Patient alert and oriented x4. No s/s of acute distress. Behavior calm and appropriate. At 10:44 AM patient blood pressure revealed result of 170/111, which this nurse confirmed with a manual blood pressure of 171/112. Patient denies complaints of chest pain, dizziness and states, "I feel fine." Patient independently gets dressed and IV removed by this nurse. Patient transfers to wheelchair. This gag writer obtains another blood pressure approximately 11:00 AM. Automatic machine is unable to read blood pressure automatically on left arm. Manual blood pressure obtained of 236/128. Second manual blood pressure confirmed by another PACU nurse which she verbalized a result of 230/118. This nurse notified HCP. Dr. Sloan presented immediately to patient's bay in PACU to evaluate patient. Patient again states, "I feel completely fine." and denies complaints of dizziness, nausea, chest pain, or trouble breathing. Dr. Sloan advised this nurse to attempt to obtain another blood pressure on automatic machine, which again would not measure blood pressure. Dr. Sloan notified of this and advised this gag writer to obtain blood pressure on a different machine. Patient transferred to the next bay via wheelchair where blood pressure again was attempted via automatic machine. After three attempts, the first two being unable to read, a third result appeared revealing result of 174/95. Patient educated to present to local emergency room if she beings to experience any onset of headache, dizziness, chest pain, generalized weakness, alteration of consciousness, trouble breathing, or blurred vision. Patient verbalizes understanding and verbalized she would follow up with primary care physician regarding blood pressure values. Patient again denies complaints of new pain or dizziness. Patient discharged from PACU at 11:[address] Sloan verbal order.
== END | disposition home or self-care (01) ==
LOC: SURG 08:44
PROVIDERS: ATTEND Anesthesiology
DX: M54.81 Occipital neuralgia (principal); I13.0 Hypertensive heart and chronic kidney disease with heart failure and stage 1 through stage 4 chronic kidney disease, or unspecified chronic kidney disease; I50.9 Heart failure, unspecified; N18.9 Chronic kidney disease, unspecified; E03.9 Hypothyroidism, unspecified; I25.118 Atherosclerotic heart disease of native coronary artery with other forms of angina pectoris; K21.9 Gastro-esophageal reflux disease without esophagitis; E78.00 Pure hypercholesterolemia, unspecified; F32.9 Major depressive disorder, single episode, unspecified; E66.9 Obesity, unspecified; M19.90 Unspecified osteoarthritis, unspecified site; F41.9 Anxiety disorder, unspecified; J44.9 Chronic obstructive pulmonary disease, unspecified; G47.33 Obstructive sleep apnea (adult) (pediatric); Z87.891 Personal history of nicotine dependence; Z96.642 Presence of left artificial hip joint; Z79.899 Other long term (current) drug therapy; Z88.0 Allergy status to penicillin; Z88.8 Allergy status to other drugs, medicaments and biological substances; Z86.718 Personal history of other venous thrombosis and embolism; Z87.440 Personal history of urinary (tract) infections; Z82.49 Family history of ischemic heart disease and other diseases of the circulatory system; Z98.41 Cataract extraction status, right eye; Z98.42 Cataract extraction status, left eye; Z79.01 Long term (current) use of anticoagulants; Z95.1 Presence of aortocoronary bypass graft; Z96.653 Presence of artificial knee joint, bilateral; Z90.49 Acquired absence of other specified parts of digestive tract
CPT/HCPCS: 64640; 99152; 99153; A4209; A4657; A4930; J1100; J2250; J3010; J3490

== ENCOUNTER 2022-01-03 15:24 | Emergency (ER) | payer OTHER ==
[~2022-01-03] VITALS: Ht 177.8 cm; Wt 105.5 kg
[~2022-01-03 15:24] MED LIST changes: -BUPIVACAINE MPF 0.25% 10 ML VIAL. ONE; -BUPIVACAINE MPF 0.25% 30 ML VIAL. INJ ONE; -DEXAMETHASONE SOD PHOS 10 MG/ML VIAL. IV ONE; -DEXAMETHASONE SOD PHOS 10 MG/ML VIAL. ONE; -LIDOCAINE 1% PF 30 ML VIAL. INJ ONE; -LIDOCAINE 1% PF 30 ML VIAL. ONE; -MIDAZOLAM HCL PF 2 MG/2 ML VIAL. IVP ONE; -MIDAZOLAM HCL PF 2 MG/2 ML VIAL. ONE
[2022-01-03 15:41] VITALS: BP 167/89
[2022-01-03] MEDS ORDERED: diphenhydrAMINE 50 MG/ML VIAL IM ONE (16:00)
[2022-01-03] MEDS ORDERED: PROCHLORPERAZINE 10 MG/2 ML VIAL. IM ONE (16:00)
[2022-01-03] MEDS ORDERED: ACETAMINOPHEN 500 MG TABLET PO ONE (16:00)
--- NOTE | 2022-01-03 16:18 | RAD ---
Exam: CT head INDICATION: Head injury TECHNIQUE: Sequential axial images through the head were obtained without the administration of IV co ntrast. Exposure: One or more of the following in the visualized dose reduction techniques were utilized for this examination: 1. Automated exposure control 2. Adjustment of the MA and/or KV according to patient size 3. Use of iterative of reconstructive technique Comparisons: None FINDINGS: No focal parenchymal lesion or hemorrhage is identified. There is no midline shift or sulcal effaceme nt. Mild patchy hypodensity in the periventricular white matter. No acute vascular territory infarction i s identified. Gaines-white distinction is preserved. The ventricular system is within normal limits without compression hydrocephalus. The basal cisterns are well maintained. The visualized portions of the paranasal sinuses and mastoid air cells are well-pneumatized. No acute fractures. IMPRESSION: Mild small vessel ischemic change, technically age indeterminate without recent prior imaging Electronically signed by: Chago Rodriguez MD (01/03/2022 4:16 PM) [facility]
--- NOTE | 2022-01-03 17:02 | PHYS DOC ---
Past History Past Medical History: Anxiety, Arthritis, Asthma, Constipation, COPD, DVT, GERD, High Cholesterol, Hypothyroid, Vascular Disease, Other Past Surgical History: Cholecystectomy, Hip Replacement, Knee Replacement Alcohol Use: None Drug Use: None General Adult EDM: Chief Complaint: HEADACHE HPI: HPI: Patient is a 66-year-old female coming in for a contusion to her mid forehead. Patient states she was putting some shopping bags in a car when she was coming back out she struck her head on the upper frame of the service parts driver side. Denies any loss of consciousness but "saw stars". Patient is on Eliquis for history of DVTs. Patient has a history of chronic migraines and states that since yesterday or migraine has been worse than normal, but in the same typical pattern. She has been getting injections, last 1 2 weeks ago. Patient states the headaches were worse prior to the head injury. Review of Systems: Review of Systems: All other systems within normal limits except for as noted in the HPI Current Medications: Current Meds: Current Medications Medications (Trade) Dose Ordered Sig/Candis Start Time Stop Time Status Last Admin Dose Admin Acetaminophen (Tylenol) 1,000 mg 1X ONCE 01/03/22 16:00 01/03/22 16:04 DC 01/03/22 16:11 1,000 MG Diphenhydramine HCl (Benadryl) 25 mg 1X ONCE 01/03/22 16:00 01/03/22 16:04 DC 01/03/22 16:12 25 MG Prochlorperazine Edisylate (Compazine) 10 mg 1X ONCE 01/03/22 16:00 01/03/22 16:04 DC 01/03/22 16:17 10 MG Allergies: Allergies: Allergies Coded Allergies Type Severity Reaction Last Updated Verified Penicillins Allergy Intermediate rash 11/28/21 No adhesive tape Allergy Intermediate 11/28/21 Yes Physical Exam: PE: Constitutional: Well developed, well nourished, no acute distress, non-toxic appearance. [] HENT: Normocephalic, small frontal forehead contusion with minimal ecchymosis, bilateral external ears normal, nose normal. [] Eyes: PERRLA, conjunctiva normal, no discharge. [] Neck: No rigidity, supple, no stridor. [] Cardiovascular: Regular rate and rhythm, brisk cap refill [] Lungs & Thorax: Non labored symmetric respirations, no tachypnea or respiratory distress [] Abdomen: Soft, nondistended. Skin: Warm, dry, no erythema, no rash. [] Back: Unremarkable Extremities: No deformities, range of motion grossly intact, no lower extremity edema [] Neurologic: Alert and oriented X 3, no focal deficits noted. [] Psychologic: Affect normal, judgement normal, mood normal. [] Current Patient Data: Vital Signs: Vital Signs Date Time Temp Pulse Resp B/P (MAP) Pulse Ox O2 Delivery O2 Flow Rate FiO2 01/03/22 15:41 97.0 63 18 167/89 (528) 98 EKG: EKG: [] Radiology/Procedures: Radiology/Procedures: [address] [address] IMAGING REPORT Signed PATIENT: JOSETTE ZHANG ACCOUNT: [id number] : 1955 LOCATION: ER AGE: 66 SEX: F EXAM STATUS: REG ER ORD. PHYSICIAN: MAXINE JOEL MD REASON: head injury, eliquis PROCEDURE: CT HEAD WO CONTRAST Exam: CT head INDICATION: Head injury TECHNIQUE: Sequential axial images through the head were obtained without the administration of IV contrast. Exposure: One or more of the following in the visualized dose reduction techniques were utilized for this examination: 1. Automated exposure control 2. Adjustment of the MA and/or KV according to patient size 3. Use of iterative of reconstructive technique Comparisons: None FINDINGS: No focal parenchymal lesion or hemorrhage is identified. There is no midline shift or sulcal effacement. Mild patchy hypodensity in the periventricular white matter. No acute vascular territory infarction is identified. Gaines-white distinction is preserved. The ventricular system is within normal limits without compression hydrocephalus. The basal cisterns are well maintained. The visualized portions of the paranasal sinuses and mastoid air cells are well- pneumatized. No acute fractures. IMPRESSION: Mild small vessel ischemic change, technically age indeterminate without recent prior imaging Electronically signed by: Chago Ernst MD (01/03/2022 4:16 PM) [facility] DICTATED AND SIGNED BY: CHAGO ERNST MD DATE: 01/03/22 9140 CC: MAXINE JOEL MD; DEIDRA LEMUS MD ~ [] Heart Score: C/O Chest Pain: No Risk Factors: Risk Factors: DM, Current or recent (<one month) smoker, HTN, HLP, family h istory of CAD, obesity. Risk Scores: Score 0 - 3: 2.5% MACE over next 6 weeks - Discharge Home Score 4 - 6: 20.3% MACE over next 6 weeks - Admit for Clinical Observation Score 7 - 10: 72.7% MACE over next 6 weeks - Early Invasive Strategies Course & Med Decision Making: Course & Med Decision Making Pertinent Labs and Imaging studies reviewed. (See chart for details) [] Dragon Disclaimer: Dragon Disclaimer: This electronic medical record was generated, in whole or in part, using a voice recognition dictation system. Departure Departure: Impression: Primary Impression: Forehead contusion Disposition: HOME / SELF CARE / HOMELESS Condition: STABLE Referrals: DEIDRA LEMUS MD (PCP) Patient Instructions: Contusion MAXINE JOEL MD Jan 03, 2022 17:02
== END 2022-01-03 17:17 | disposition home or self-care (01) ==
LOC: ER 15:24
DX: S00.83XA Contusion of other part of head, initial encounter (principal); G43.909 Migraine, unspecified, not intractable, without status migrainosus; F41.9 Anxiety disorder, unspecified; M19.90 Unspecified osteoarthritis, unspecified site; J44.9 Chronic obstructive pulmonary disease, unspecified; K21.9 Gastro-esophageal reflux disease without esophagitis; E78.00 Pure hypercholesterolemia, unspecified; E03.9 Hypothyroidism, unspecified; Z86.718 Personal history of other venous thrombosis and embolism; Z79.01 Long term (current) use of anticoagulants; Z88.0 Allergy status to penicillin; Z88.8 Allergy status to other drugs, medicaments and biological substances; W22.8XXA Striking against or struck by other objects, initial encounter; Y93.89 Activity, other specified; Y92.89 Other specified places as the place of occurrence of the external cause; Y99.8 Other external cause status
CPT/HCPCS: 70450; 96372; 99284; J0780; J1200